=== PATIENT | female | born 1965 | race African-American/Black ===

== ENCOUNTER 2020-02-14 08:58 | Outpatient (REF) | payer OTHER, SELFPAY ==
[2020-02-14 11:36] LABS: Alanine Aminotransferase 20 U/L (0-31); Anion Gap 15 (12-20); Aspartate Amino Transferase 22 U/L (5-31); Blood Urea Nitrogen 21 mg/dL (9-16); Calcium 8.7 mg/dL (8.4-10.2); Carbon Dioxide 27 mmol/L (22-29); Chloride 103 mmol/L (96-108); Cholesterol 190 mg/dL; Estimated Glomerular Filt Rate > 60; Glucose Fasting 108 mg/dL (60-99); HDL Cholesterol 53 mg/dL; LDL Cholesterol Calculated 101 mg/dl; Potassium 4.5 mmol/l (3.3-5.1); Sodium 140 mmol/L (135-145); Triglycerides 184 mg/dL
[2020-02-14 11:58] LABS: Thyroid Stimulating Hormone 1.39 mIU/mL (0.32-4.0)
== END 2020-02-14 08:59 | disposition home or self-care (01) ==
LOC: HO.HMGCLDS 08:58
PROVIDERS: PCP Internal Medicine; Visit Provider Internal Medicine
DX: I10 Essential (primary) hypertension (principal)
CPT/HCPCS: 80048; 80061; 84443; 84450; 84460

== ENCOUNTER 2021-04-04 16:25 | Emergency (ER) | payer SELFPAY ==
--- NOTE | ~2021-04-04 | XR_ITS ---
EXAMINATION: XR FOOT, LEFT CLINICAL INFORMATION: Swelling and pain COMPARISON: None TECHNIQUE: AP, lateral, and oblique views of the left foot. FINDINGS: No acute fracture or dislocation. Joint spaces and articular surfaces are maintained. Tiny posterior and plantar calcaneal enthesophytes. Mild soft tissue swelling lateral to the ankle. XR/XR foot LT min 3V IMPRESSION: No acute fracture or dislocation
[2021-04-04 20:13] VITALS: BP 180/100; PULSE 68; RESP 16; TEMP 37; O2SAT 99; BMI 29.9
[2021-04-04 21:08] LABS: Basophils Percent Auto 0.5 % (0-2); Eosinophils Absolute Auto 0.2 X10*3/uL (0.0-0.4); Eosinophils Percent Auto 2.8 % (0-4); Hematocrit 38.8 % (37.0-47.0); Hemoglobin 12.2 g/dl (12.0-16.0); Imm Gran Abs Auto 0.01 X10*3/uL (0.00-0.03); Imm Gran Pct Auto 0.1 % (0.0-0.4); Lymphocytes Absolute Auto 3.3 X10*3/uL (1.2-4.9); MANUAL DIFF FLAG NO; Mean Corpuscular HGB Conc 31.4 g/dl (31.0-35.0); Mean Corpuscular Hemoglobin 25.7 pg (27.0-33.0); Mean Corpuscular Volume 81.9 fL (80.0-98.0); Mean Platelet Volume 9.7 fL (9.4-12.3); Monocytes Absolute Auto 0.6 X10*3/uL (0.1-1.2); Monocytes Percent Auto 6.6 % (2-11); Neutrophils Absolute Auto 4.2 x10*3/uL (2.0-8.3); Platelet Count 247 X10*3/uL (160-400); Red Blood Count 4.74 X10*6/uL (4.20-5.50); Red Cell Distribution Width 13.8 % (11.0-16.0); White Blood Count 8.4 X10*3/uL (4.8-10.8)
[2021-04-04 21:31] LABS: Anion Gap 10 (12-20); Blood Urea Nitrogen 19 mg/dL (9-16); Calcium 9.2 mg/dL (8.4-10.2); Carbon Dioxide 27 mmol/L (22-29); Chloride 109 mmol/L (96-108); Estimated Glomerular Filt Rate > 60; Glucose Random 106 mg/dL (60-115); Potassium 3.7 mmol/L (3.3-5.1); Sodium 142 mmol/L (135-145)
[2021-04-04 21:39] LABS: Troponin-I High Sensitivity < 3.5 ng/L (<3.5-17.0)
[2021-04-04 23:25] LABS: Erythrocyte Sedimentation Rate 8 MM/HR (0-20)
[2021-04-04 23:38] LABS: D Dimer High Sensitivity < 150 NG/ML
[2021-04-04 23:43] LABS: C Reactive Protein 0.89 mg/dL (< or = 0.50)
[2021-04-05 00:42] VITALS: BP 144/98; PULSE 75; RESP 18; O2SAT 98
--- NOTE | 2021-04-05 02:00 | ED_ITS ---
HPI - Extremity Injury (Lower) General Chief Complaint: Extremity Injury, Lower Stated Complaint: L foot swelling/No injury Time Seen by Provider: 04/04/21 22:09 Source: patient Mode of arrival: ambulatory Limitations: no limitations History of Present Illness HPI Narrative: 56-year-old female who woke up with left foot swelling this morning. Patient states that she has pain in her left Achilles tendon, she cannot flex her foot without pain. Patient has pain in the back of her heel. Patient has swelling in her left lateral ankle, no trauma. Patient can not bear weight due to pain. Patient has not had any new shoes, she is not on any medications, does not take amlodipine, no history of gout, no history of blood clots. Related Data Previous Rx's Medication Instructions Recorded olmesartan 20 mg tablet 20 mg PO DAILY #30 tab 02/25/20 hydrochlorothiazide 25 mg tablet 25 mg PO QAM #90 tab 06/25/20 prednisone 50 mg tablet 50 mg PO DAILY 5 Days #5 tab 04/05/21 Allergies Allergy/AdvReac Type Severity Reaction Status Date / Time lisinopril [LISINOPRIL] AdvReac Unknown COUGH, Verified 02/25/20 14:08 throat tightness, cough, cough Review of Systems Constitutional: Constitutional: Denies body ache(s), Denies chills, Denies fatigue, Denies fever(s), Denies headache(s), Denies malaise and Denies weakness Eyes: Eyes: Denies diplopia ENT: Denies vertigo, Denies dizziness, Denies otalgia, Denies headache(s), Denies mouth pain, Denies post nasal drip, Denies sinus pain, Denies sinus pres sure, Denies sore throat and Denies throat swelling Cardiovascular: Cardiovascular: Denies chest pain, Denies syncope, Denies leg edema, Denies lightheadedness, Denies Loss of Consciousness, Denies palpitations and Denies dyspnea Respiratory: Respiratory: Denies chest congestion, Denies cough and Denies dyspnea Gastrointestinal: Gastrointestinal: Denies abdominal pain, Denies hematochezia, Denies constipation, Denies diarrhea and Denies vomiting Musculoskeletal: Musculoskeletal: Reports arthralgias, Reports limited range of motion, Denies numbness and Denies tingling Neurologic: Denies confusion, Denies vertigo, Denies dizziness, Denies syncope, Denies headache(s), Denies numbness, Denies tingling and Denies weakness Psychiatric: Psychiatric: Denies anxiety, Denies confusion and Denies dep ression Endocrine: Endocrine: Denies fatigue and Denies palpitations Allergic/Immunologic: Allergic/Immunologic: Denies throat swelling PMFSH Past Medical History Medical History (Updated 04/05/21 @ 00:17 by RODRIGO Harrell) Carpal tunnel syndrome Essential hypertension Fibromyalgia Impaired fasting glucose Menopause Refused influenza vaccine Urinary, incontinence, stress female Vitiligo Surgical History History of carpal tunnel surgery History of tubal ligation Family History Family History Mother Coronary artery disease Essential hypertension Diabetes mellitus Social History Social History Alcohol intake: current Alcohol intake frequency: holidays/special occasions only Cigarettes Per Day: 5 Advance Directives: No Advance Directives Information Provided: No Physical Exam Vital Signs: Vital Signs: Last Vital Signs Temp 98.6 F 04/04/21 20:13 Pulse 75 04/05/21 00:42 Resp 18 04/05/21 00:42 BP 144/98 H 04/05/21 00:42 Pulse Ox 98 04/05/21 00:42 BMI result Body Mass Index 29.9 Const: General: No confusion Nutritional Appearance: well nourished Orientation/consciousness: No confusion Limitations: no limitations HENMT: Head: Yes normal to inspection, Yes normocephalic and Yes atraumatic Ears: hearing grossly normal bilaterally, external ears normal, TM's normal bilaterally and EAC's normal General nose exam: Normal external nose present Face and sinus: Yes normal facial exam and Yes sinuses nontender Mouth: Normal oral and palatal mucosa present Throat: Yes posterior oropharynx normal Eyes: Conjunctivae: conjunctivae normal Pupils: Equal, round and reactive pupils present EOM: EOMs intact bilaterally Neck: Neck: Yes full ROM, Yes no lymphadenopathy and Yes supple Resp: Effort & Inspection: normal respiratory effort and able to speak in complete sentences Auscultation: clear to auscultation bilaterally, no crackles, no rales, no rhonchi and no wheezes Cardio: Rate: regular rate Rhythm: regular rhythm Heart sounds: S1 normal heart sound present and S2 normal heart sound present GI: Inspection: Yes normal to inspection Palpation (GI): Soft to palpation, nontender, no guarding and not rigid Percussion: Yes normal to percussion Auscultation: normal bowel sounds Skin: Other: No redness or warmth. Swelling over lateral left ankle General skin exam: no rashes or lesions noted Neuro: General: No confusion Cranial nerves: Yes Equal, round and reactive pupils present Extrem: Left lower extremity: normal capillary refill and ankle Details: tenderness Location: of the lateral malleolus, swelling Details: laterally and normal ROM; Negative for no warmth, no ecchymosis, no crepitus and achilles tendon exam normal; No no edema Psych: Appearance: grossly normal Affect: normal affect Attitude: cooperative Thought process: Normal thought process present Course Course Course Narrative: 56-year-old female presents for atraumatic left foot pain that started this morning. Patient is tender over Achilles tendon, heel of foot, and has left lateral ankle swelling. No warmth or redness. Patient has the x- ray negative for any osseous injury, has normal labs, negative D-dimer, ESR is not elevated, CRP is only very mildly elevated. Prescribed prednisone, provided ankle stirrup splint, crutches, at patient call PCP to follow-up for further evaluation. Counseled patient she may need a referral to physical therapy. MDM - Extremity Injury (Lower) Lab Data Result diagrams: 04/04/21 21:04/04/21 21:01 Labs: Lab Results 04/04/21 04/04/21 04/04/21 Range/Units 21:01 21:01 21: WBC 8.4 (4.8-10.8) X10*3/uL RBC 4.74 (4.20-5.50) X10*6/uL Hgb 12.2 (12.0-16.0) g/dl Hct 38.8 (37.0-47.0) % MCV 81.9 (80.0-98.0) fL MCH 25.7 L (27.0-33.0) pg MCHC 31.4 (31.0-35.0) g/dl RDW 13.8 (11.0-16.0) % Plt Count 247 (160-400) X10*3/uL MPV 9.7 (9.4-12.3) fL Immature Gran % (Auto) 0.1 (0.0-0.4) % Neut % (Auto) 50.0 (45-73) % Lymph % (Auto) 40.0 (20-40) % [place] % (Auto) 6.6 (2-11) % Eos % (Auto) 2.8 (0-4) % Baso % (Auto) 0.5 (0-2) % Lymph # (Auto) 3.3 (1.2-4.9) X10*3/uL [place] # (Auto) 0.6 (0.1-1.2) X10*3/uL Eos # (Auto) 0.2 (0.0-0.4) X10*3/uL Baso # (Auto) 0.0 (0.0-0.2) X10*3/uL Abs Immat Gran (auto) 0.01 (0.00-0.03) X10*3/uL Absolute Neuts (auto) 4.2 (2.0-8.3) x10*3/uL Absolute Nucleated RBC 0.000 (0.0-0.012) X10*3/uL Nucleated RBC % (auto) 0.0 (0.0-0.2) /100WBC ESR (0-20) MM/HR D-Dimer High Sensitivty NG/ML Sodium 142 (135-145) mmol/L Potassium 3.7 (3.3-5.1) mmol/L Chloride 109 H (96-108) mmol/L Carbon Dioxide 27 (22-29) mmol/L Anion Gap 10 L (12-20) BUN 19 H (9-16) mg/dL Creatinine 0.72 (0.5-1.4) mg/dL Estim Creat Clear Calc 91.0 Estimated GFR > 60 Random Glucose 106 (60-115) mg/dL Calcium 9.2 (8.4-10.2) mg/dL Troponin I High Sens < 3.5 (<3.5-17.0) ng/L C-Reactive Protein (< or = 0.50) mg/dL 04/04/21 04/04/21 04/04/21 Range/Units 21:01 23:10 23:10 WBC (4.8-10.8) X10*3/uL RBC (4.20-5.50) X10*6/uL Hgb (12.0-16.0) g/dl Hct (37.0-47.0) % MCV (80.0-98.0) fL MCH (27.0-33.0) pg MCHC (31.0-35.0) g/dl RDW (11.0-16.0) % Plt Count (160-400) X10*3/uL MPV (9.4-12.3) fL Immature Gran % (Auto) (0.0-0.4) % Neut % (Auto) (45-73) % Lymph % (Auto) (20-40) % [place] % (Auto) (2-11) % Eos % (Auto) (0-4) % Baso % (Auto) (0-2) % Lymph # (Auto) (1.2-4.9) X10*3/uL [place] # (Auto) (0.1-1.2) X10*3/uL Eos # (Auto) (0.0-0.4) X10*3/uL Baso # (Auto) (0.0-0.2) X10*3/uL Abs Immat Gran (auto) (0.00-0.03) X10*3/uL Absolute Neuts (auto) (2.0-8.3) x10*3/uL Absolute Nucleated RBC (0.0-0.012) X10*3/uL Nucleated RBC % (auto) (0.0-0.2) /100WBC ESR 8 (0-20) MM/HR D-Dimer High Sensitivty < 150 NG/ML Sodium (135-145) mmol/L Potassium (3.3-5.1) mmol/L Chloride (96-108) mmol/L Carbon Dioxide (22-29) mmol/L Anion Gap (12-20) BUN (9-16) mg/dL Creatinine (0.5-1.4) mg/dL Estim Creat Clear Calc Estimated GFR Random Glucose (60-115) mg/dL Calcium (8.4-10.2) mg/dL Troponin I High Sens (<3.5-17.0) ng/L C-Reactive Protein 0.89 H (< or = 0.50) mg/dL Discharge Plan Discharge Clinical Impression: Localized swelling of left foot Patient Disposition: Home, Self-Care Instructions: Crutch Instructions (ED), R.I.C.E. Treatment (ED) Additional Instructions: Please rest, ice, and elevate your left foot. Please call your primary care provider on Monday. They may want to re-evaluate you and possibly sent due to physical therapy. Please take prednisone as prescribed. Prescriptions: New prednisone 50 mg tablet 50 mg PO DAILY 5 Days Qty: 5 RF: 0 No Action olmesartan 20 mg tablet 20 mg PO DAILY Qty: 30 RF: 8 hydrochlorothiazide 25 mg tablet 25 mg PO QAM Qty: 90 RF: 0 Stand Alone Forms: Work/School Release Interventions: ED Discharge Assessment Last Done: 04/05/21 00:43 Discharge Date/Time: 04/05/21 00:59
== END 2021-04-05 00:59 | disposition home or self-care (01) ==
PROVIDERS: Physician Assistant; Emergency Provider Emergency Medicine; PCP Internal Medicine
DX: R22.42 Localized swelling, mass and lump, left lower limb (principal); M79.672 Pain in left foot
CPT/HCPCS: 36415; 73630; 80048; 84484; 85025; 85379; 85652; 86140; 99283

== ENCOUNTER 2021-04-21 07:47 | Outpatient (REF) | payer OTHER, SELFPAY | END 2021-04-21 07:48 | disposition home or self-care (01) | LOC: HO.HMGCLDS 07:47 | PROVIDERS: Visit Provider Internal Medicine | DX: Z20.822 Contact with and (suspected) exposure to COVID-19 (principal) | CPT/HCPCS: C9803; U0003; U0005 ==

== ENCOUNTER 2021-05-16 12:12 | Emergency (ER) | payer OTHER, SELFPAY ==
[2021-05-16 12:15] VITALS: BP 170/95; PULSE 74; RESP 19; TEMP 36.6; O2SAT 99; BMI 30.2
--- NOTE | 2021-05-16 13:41 | ED_ITS ---
HPI - URI/Sore Throat General Chief Complaint: Upper Respiratory Symptoms Stated Complaint: shortness of breath, COVID+ Time Seen by Provider: 05/16/21 12:21 Source: patient and RN notes reviewed Mode of arrival: ambulatory Limitations: no limitations History of Present Illness HPI Narrative: pt with sorethroat, cough, body aches and low grade fever x 5 days. covid test 2 days ago that resulted + today. pt came to ED to be cautious because she has covid and wanted to be checked out. pt has some SOB with exertion, no n/v/d, eating and drinking well. pt with hx of HTN Relieving factors: rest Treatments prior to arrival: none Related Data Previous Rx's Medication Instructions Recorded olmesartan 20 mg tablet 20 mg PO DAILY #30 tab 02/25/20 hydrochlorothiazide 25 mg tablet 25 mg PO QAM #90 tab 06/25/20 prednisone 50 mg tablet 50 mg PO DAILY 5 Days #5 tab 04/05/21 Allergies Allergy/AdvReac Type Severity Reaction Status Date / Time lisinopril [LISINOPRIL] AdvReac Unknown COUGH, Verified 02/25/20 14:08 throat tightness, cough, cough Review of Systems Verdana 4l Review of Systems: Verdana 4d Verdana 4d Constitutional : No trauma, No Weight loss, No Fever, No Chills, ENT/Mouth : No Hearing loss, No Ear Pain, No Nasal Congestion, No Sinus Pain, No Hoarseness, + sore throat, No Rhinorrhea, No Swallowing Difficulty Cardiovascular : No Chest Pain, Respiratory : + Cough, mild SOB Gastrointestinal : No Nausea, No Vomiting, No Diarrhea, No abdominal Pain, Genitourinary : No Dysuria, No Urinary Frequency, No Hematuria, No Urinary or Bowel Incontinence/retention? Musculoskeletal : no Back pain, No neck pain, No joint stiffness, No joint swelling Skin : No Skin Lesions, No rash or signs of infection Neuro : No Weakness, No radiation, No Numbness, No Paresthesias, mild headache, Denies history of IV drug usage. Psych : No SI/HI/thoughts of self injury Yes all other systems are reviewed and are negative [facility] Past Medical History Attestation statement: The following information was validated with the patient. Medical History (Updated 05/16/21 @ 13:45 by RODRIGO Thurston) Carpal tunnel syndrome Essential hypertension Fibromyalgia Impaired fasting glucose Menopause Refused influenza vaccine Urinary, incontinence, stress female Vitiligo Surgical History History of carpal tunnel surgery History of tubal ligation Family History Family History Mother Coronary artery disease Essential hypertension Diabetes mellitus Social History Social History Alcohol intake: current Alcohol intake frequency: holidays/special occasions only Cigarettes Per Day: 5 Advance Directives: No Advance Directives Information Provided: Yes Patient : No Physical Exam Verdana 4l Vital Signs: Verdana 4d Verdana 4d Vital Signs: Verdana 4d Verdana 4Bd Last Vital Signs Verdana 4d Cmm Programmer New 4d Cmm Programmer New 4d Temp 98 F 05/16/21 12:15 Cmm Programmer New 4d Pulse 74 05/16/21 12:15 Cmm Programmer New 4d Resp 19 05/16/21 12:15 BP 170/95 H 05/16/21 12:15 Pulse Ox 99 05/16/21 12:15 BMI result Body Mass Index 30.2 vital signs have been reviewed as normal and appeared to be correct.? Blood pressure elevated.? Heart rate normal.? Respiration rate normal.? Temperature normal.? Oxygen saturation normal. Appearance: Alert. Oriented X3. No acute distress. ? Head: Normal external exam. Normocephalic. Atraumatic.? Eyes: PERRLA. EOMI. Conjunctiva and sclera normal. Eyelids normal. ? ENT: EAC normal. TMs Normal. Pharynx normal. Uvula midline. Moist mucous membranes. ? No trismus noted.? No drooling noted.? No muffled voice noted. Neck: Normal inspection. Neck supple. Normal ROM. No adenopathy. No meningeal signs. No neck mass noted. CVS: Normal heart rate and rhythm. Heart sound normal. No murmurs noted. Respiratory: No respiratory distress. Painless inspiration. Breath sounds normal. No wheezes/rales/rhonchi noted. Chest nontender. ? No accessory muscle usage noted or decreased air movement noted. Abdomen: Soft and nontender. Back: ?? Full range of motion noted. Skin: Skin warm and dry.? Normal skin color.? Normal skin turgor. No rashes/lesions/lacerations noted. Extremities: ? Extremities exhibit normal range of motion.? Extremities nontender. Normal gait Neuro: Oriented X 3.? No motor deficit noted. No sensory deficit noted. Discharge Plan Discharge Clinical Impression: Upper respiratory infection, COVID-19 Patient Disposition: Home, Self-Care Instructions: Upper Respiratory Infection (ED), COVID-19 (Coronavirus Disease 2019) (ED) Additional Instructions: Note given for work. Follow CDC and state guidelines for quarantining. Return if worse, increasing shortness of breath. okay to take tylenol or ibuprofen for control of fever and body aches. drink plenty of fluids. Prescriptions: No Action olmesartan 20 mg tablet 20 mg PO DAILY Qty: 30 8RF hydrochlorothiazide 25 mg tablet 25 mg PO QAM Qty: 90 0RF prednisone 50 mg tablet 50 mg PO DAILY 5 Days Qty: 5 0RF Referrals: [facility] [Primary Care Provider] - 2 days (as needed) Stand Alone Forms: Work/School Release Interventions: ED Discharge Assessment Last Done: 05/16/21 14:05 Discharge Date/Time: 05/16/21 14:06
--- NOTE | 2021-05-16 14:01 | PC.NURSE ---
Patient to ER after learning she is COVID +. Patient is alert and oriented with regular and even respirations. No difficulty breathing. SPO2 99%. Skin PWD. Awaiting discharge.
== END 2021-05-16 14:06 | disposition home or self-care (01) ==
PROVIDERS: Emergency Provider Emergency Medicine
DX: U07.1 COVID-19 (principal); J06.9 Acute upper respiratory infection, unspecified; R06.02 Shortness of breath; F17.210 Nicotine dependence, cigarettes, uncomplicated; Z71.6 Tobacco abuse counseling; Z79.899 Other long term (current) drug therapy
CPT/HCPCS: 99283

== ENCOUNTER 2021-08-04 11:53 | Outpatient (REF) | payer SELFPAY ==
[2021-08-04 14:07] LABS: Alanine Aminotransferase 20 U/L (0-31); Albumin Level 4.3 g/dL (3.5-5.0); Alkaline Phosphatase 114 U/L (39-117); Anion Gap 13 (12-20); Aspartate Amino Transferase 23 U/L (5-31); Bilirubin Total 0.3 mg/dL (0.0-1.0); Blood Urea Nitrogen 13 mg/dL (9-16); Calcium 9.4 mg/dL (8.4-10.2); Carbon Dioxide 27 mmol/L (22-29); Chloride 105 mmol/L (96-108); Cholesterol 185 mg/dL; Estimated Glomerular Filt Rate > 60; Glucose Fasting 89 mg/dL (60-99); HDL Cholesterol 48 mg/dL; LDL Cholesterol Calculated 115 mg/dl; Potassium 4.6 mmol/L (3.3-5.1); Sodium 140 mmol/L (135-145); Total Protein 7.4 g/dL (6.5-8.0); Triglycerides 112 mg/dL
== END 2021-08-04 11:54 | disposition home or self-care (01) ==
LOC: HO.HMGCLDS 11:53
PROVIDERS: PCP Internal Medicine; Visit Provider Internal Medicine
DX: R73.01 Impaired fasting glucose (principal); I10 Essential (primary) hypertension
CPT/HCPCS: 36415; 80053; 80061

== ENCOUNTER 2021-12-04 15:41 | Emergency (ER) | payer SELFPAY ==
--- NOTE | ~2021-12-04 | CT_ITS ---
EXAMINATION: CT HEAD WITHOUT CONTRAST CLINICAL INFORMATION: Headache. COMPARISON: MR brain 12/15/2015. TECHNIQUE: Contiguous axial imaging was performed from the skull base to vertex without intravenous administration of contrast. This CT examination was performed using dose optimization techniques as appropriate, variously including the following: *Automated exposure control *Adjustment of mA and/or kV according to patient size (this includes techniques or standardized protocols for targeted exams where dose is matched to indication/reason for exam; i.e. extremities or head) *Use of iterative reconstruction technique DLP: 677 mGy-cm FINDINGS: There is no evidence of acute intracranial hemorrhage or edematous territorial infarction. There is no abnormal attenuation within the brain parenchyma. King-white matter differentiation is preserved. The ventricles are normal in size and configuration. No evidence for obstructive hydrocephalus. No abnormal mass effect or midline shift. No extra-axial fluid collections. No acute soft tissue or osseous abnormalities. The mastoid air cells and paranasal sinuses are clear. CT/CT head/brain wo con IMPRESSION: No evidence of acute intracranial hemorrhage or edematous territorial infarction.
[2021-12-04 15:47] VITALS: BP 173/113; PULSE 98; RESP 18; TEMP 37; O2SAT 100
--- NOTE | 2021-12-04 15:51 | ECG_ITS ---
Test Reason : dizziness/headpressure Blood Pressure : / mmHG Vent. Rate : 081 BPM Atrial Rate : 081 BPM P-R Int : 154 ms QRS Dur : 072 ms QT Int : 378 ms P-R-T Axes : 040 039 051 degrees QTc Int : 439 ms Normal sinus rhythm Nonspecific ST abnormality Abnormal ECG When compared with ECG of 13-NOV-2017 18:14, No significant change was found Referred By: Generic ED Physician Electronically Signed By:ANDRES WILKINS
[2021-12-04 16:06] LABS: MANUAL DIFF FLAG NO
[2021-12-04 16:07] LABS: Basophils Absolute Auto 0.1 X10*3/uL (0.0-0.2); Basophils Percent Auto 0.6 % (0-2); Eosinophils Absolute Auto 0.2 X10*3/uL (0.0-0.4); Eosinophils Percent Auto 2.1 % (0-4); Hematocrit 38.1 % (37.0-47.0); Hemoglobin 12.5 g/dl (12.0-16.0); Imm Gran Abs Auto 0.01 X10*3/uL (0.00-0.03); Imm Gran Pct Auto 0.1 % (0.0-0.4); Lymphocytes Absolute Auto 2.6 X10*3/uL (1.2-4.9); Lymphocytes Percent Auto 33.6 % (20-40); Mean Corpuscular HGB Conc 32.8 g/dl (31.0-35.0); Mean Corpuscular Hemoglobin 26.2 pg (27.0-33.0); Mean Corpuscular Volume 79.9 fL (80.0-98.0); Mean Platelet Volume 9.7 fL (9.4-12.3); Monocytes Absolute Auto 0.5 X10*3/uL (0.1-1.2); Monocytes Percent Auto 6.4 % (2-11); Neutrophils Absolute Auto 4.4 x10*3/uL (2.0-8.3); Neutrophils Percent Auto 57.2 % (45-73); Platelet Count 252 X10*3/uL (160-400); Red Blood Count 4.77 X10*6/uL (4.20-5.50); Red Cell Distribution Width 13.5 % (11.0-16.0); White Blood Count 7.8 X10*3/uL (4.8-10.8)
[2021-12-04 16:23] LABS: Alanine Aminotransferase 16 U/L (0-31); Albumin Level 4.3 g/dL (3.5-5.0); Alkaline Phosphatase 106 U/L (39-117); Anion Gap 14 (12-20); Aspartate Amino Transferase 18 U/L (5-31); Bilirubin Total 0.3 mg/dL (0.0-1.0); Blood Urea Nitrogen 18 mg/dL (9-16); Calcium 9.7 mg/dL (8.4-10.2); Carbon Dioxide 25 mmol/L (22-29); Chloride 108 mmol/L (96-108); Creatinine Clr Calc Pharmacy 73.7; Estimated Glomerular Filt Rate > 60; Glucose Random 119 mg/dL (60-115); Potassium 3.6 mmol/L (3.3-5.1); Sodium 143 mmol/L (135-145); Total Protein 7.2 g/dL (6.5-8.0)
[2021-12-04 16:26] LABS: Troponin-I High Sensitivity < 3.5 ng/L (<3.5-17.0)
[2021-12-04 18:07] VITALS: BP 182/104; PULSE 70; RESP 18; TEMP 36.4; O2SAT 98
--- NOTE | 2021-12-04 19:39 | ED.EPISTAXIS ---
History of Present Illness General Chief Complaint: Epistaxis Stated Complaint: nose bleed Time Seen by Provider: 12/04/21 17:29 Source: patient Mode of arrival: ambulatory Limitations: no limitations History of Present Illness HPI Narrative: anxious hx of HTN not on aspirin or blood thinners normal day today was driving and developed brisk nose bleed R > L. No trauma no prior nose bleeds. Location: Yes right nares Onset/current episode: Yes minute(s) (just prior to arrival - in triage 4 hours prior to my exam of her ) Duration: Yes intermittent Pertinent past history: Yes hypertension Context: Yes other (denies states it started suddenly ) Associated symptoms: Yes headache Treatment prior to arrival: Yes nose pinching Related Data Previous Rx's Medication Instructions Recorded valsartan 160 mg tablet 160 mg PO DAILY #90 tabs 08/27/21 Allergies Allergy/AdvReac Type Severity Reaction Status Date / Time lisinopril [LISINOPRIL] AdvReac Unknown COUGH, Verified 08/03/21 10:59 throat tightness, cough, cough Review of Systems Review of Systems: Constitutional : No Fever, No Chills ENT/Mouth : No Ear Pain, No Nasal Congestion, positive nose bleed Eyes: No Eye Pain, No Swelling, No Redness Cardiovascular : No Chest Pain, No SOB Respiratory : No Cough, No Sputum Gastrointestinal : No Nausea, No Vomiting, No Diarrhea Genitourinary : No Dysuria, No Hematuria Musculoskeletal : No joint pain, No Myalgias Skin : No Skin Lesions, No rash Neuro : No Weakness, No Numbness, No headache Psych : pos Anxiety/Panic, No Depression All other systems reviewed and are negative [facility] Past Medical History Attestation statement: The following information was validated with the patient. Medical History Carpal tunnel syndrome Fibromyalgia History of bone density study Impaired fasting glucose Menopause Refused influenza vaccine Smoker unmotivated to quit Urinary, incontinence, stress female Vitiligo Surgical History History of carpal tunnel surgery History of tubal ligation Family History Family History Mother Coronary artery disease Essential hypertension Diabetes mellitus Son Mental health disorder Social History Social History Housing: House Alcohol intake: current Alcohol intake frequency: holidays/special occasions only Patient Tobacco Use Status: Current everyday Tobacco user Cigarettes Per Day: 4 e-Cigarette/Vaping Use: Never Used Advance Directives: No Advance Directives Information Provided: No service: No Current occupational status: employed Cognitive needs: No Hearing needs: No Vision needs: No Physical Exam Vital Signs: Vital Signs: Last Vital Signs Temp 97.9 F 12/04/21 20:35 Pulse 58 12/04/21 20:35 Resp 20 12/04/21 20:35 BP 184/101 H 12/04/21 20:35 Pulse Ox 98 12/04/21 20:35 O2 Del Method 12/04/21 20:35 BMI result Body Mass Index 30.0 Appearance: Alert. Oriented X3. anxious mild acute distress. Eyes: Pupils equal, round and reactive to light. ENT: Pharynx blood noted in back of throat, R nares brisk brb noted, L scant brb noted, Neck: Normal inspection. Neck supple. CVS: Normal heart rate and rhythm. Pulses normal. Respiratory: No respiratory distress. Breath sounds normal. Abdomen: Soft and nontender. Skin: Skin warm and dry. Normal skin color. Extremities: No lower extremity edema. dried blood on chuy shortsabrina Neuro: Oriented X 3. No motor deficit. No sensory deficit. Course Course Course Narrative: CT head ordered given headache prior to epistaxis CT head normal no further symptoms, bleeding controlled, BP still slightly elevated - asymptomatic stable for DC MDM - Epistaxis MDM Narrative Medical decision making narrative: 56 yo female with hx of HTN not on blood thinners or ASA c/o bilateral nose bleed R>L intermittent x 4 hours. She is NV intact. Bleeding seems to be predominant to the R nares. Labs in triage stable. At this time will attempt local measures and cautery if that does not work will attempt rhino rocket. Dispo per results and bleeding control. Lab Data Result diagrams: 12/04/21 16:00 12/04/21 16:00 Labs: Lab Results 12/04/21 12/04/21 12/04/21 Range/Units 16:00 16:00 16:00 WBC 7.8 (4.8-10.8) X10*3/uL RBC 4.77 (4.20-5.50) X10*6/uL Hgb 12.5 (12.0-16.0) g/dl Hct 38.1 (37.0-47.0) % MCV 79.9 L (80.0-98.0) fL MCH 26.2 L (27.0-33.0) pg MCHC 32.8 (31.0-35.0) g/dl RDW 13.5 (11.0-16.0) % Plt Count 252 (160-400) X10*3/uL MPV 9.7 (9.4-12.3) fL Immature Gran % (Auto) 0.1 (0.0-0.4) % Neut % (Auto) 57.2 (45-73) % Lymph % (Auto) 33.6 (20-40) % [place] % (Auto) 6.4 (2-11) % Eos % (Auto) 2.1 (0-4) % Baso % (Auto) 0.6 (0-2) % Lymph # (Auto) 2.6 (1.2-4.9) X10*3/uL [place] # (Auto) 0.5 (0.1-1.2) X10*3/uL Eos # (Auto) 0.2 (0.0-0.4) X10*3/uL Baso # (Auto) 0.1 (0.0-0.2) X10*3/uL Abs Immat Gran (auto) 0.01 (0.00-0.03) X10*3/uL Absolute Neuts (auto) 4.4 (2.0-8.3) x10*3/uL Absolute Nucleated RBC 0.000 (0.0-0.012) X10*3/uL Nucleated RBC % (auto) 0.0 (0.0-0.2) /100WBC Sodium 143 (135-145) mmol/L Potassium 3.6 D (3.3-5.1) mmol/L Chloride 108 (96-108) mmol/L Carbon Dioxide 25 (22-29) mmol/L Anion Gap 14 (12-20) BUN 18 H (9-16) mg/dL Creatinine 0.89 (0.5-1.4) mg/dL Estim Creat Clear Calc 73.7 Estimated GFR > 60 Random Glucose 119 H (60-115) mg/dL Calcium 9.7 (8.4-10.2) mg/dL Total Bilirubin 0.3 (0.0-1.0) mg/dL AST 18 (5-31) U/L ALT 16 (0-31) U/L Alkaline Phosphatase 106 (39-117) U/L Troponin I High Sens < 3.5 (<3.5-17.0) ng/L Total Protein 7.2 (6.5-8.0) g/dL Albumin 4.3 (3.5-5.0) g/dL ECG Data Attestation: I personally reviewed and interpreted this ECG as follows: ECG interpretation date: 12/04/21 ECG interpretation time: 19:41 Interpretation: Rate: 81 Rhythm: NSR [place]: normal Normal P waves. Normal NATHAN. Normal QRS complex. ST T wave : normal no SAMREEN qTC: normal prior studies: no acute ischemia The study has been interpreted contemporaneously by me. . Procedures Epistaxis Control Time Out Performed: Yes Nostril: Yes left and Yes right Nose prepped with: Yes oxymetazoline and Yes other (tranexamic acid) Direct inspection: Yes anterior source identified Direct inspection method: Yes nasal rhinoscope Clots removed by: Yes manually Epistaxis treatment: Yes TXA soaked gauze and Yes silver nitrate cautery Results of treatment: Yes bleeding controlled and Yes treatment well tolerated Complications: Yes none Critical Care Time Critical Care Time Critical Care Time: Yes Total Critical Care Time: 35 Attestation: acute management of epistaxis at bedside with repeat assessments I attest to this time spent taking care of the patient Discharge Plan Discharge Clinical Impression: Epistaxis Patient Disposition: Home, Self-Care Instructions: Nosebleed (ED) Additional Instructions: return to ED for any worsening symptoms or concerns no nose blowing for 5 days no picking nose take blood pressure meds no aspirin if nose bleeds pinch it lean forward and seek help use saline spray for the next 5 days to keep area moistened Prescriptions: No Action valsartan 160 mg tablet 160 mg PO DAILY Qty: 90 3RF
--- NOTE | 2021-12-04 19:43 | PC.NURSE ---
At approximately 1930- i was notified by registration that the patient's nose started to bleed again. Per pt: I'm going to bleed and spit on the floor. This is bullshit. This a fucking emergency room and this is an emergency. Why the fuck are people called in ahead of me. I'm going to file a complaint against the hospital. Pt brought back to triage for reassessment. Charge nurse notified of patient and verbally abusive behavior. Pt brought back to [address] [place] [id number] for further assessment.
[2021-12-04] MEDS: Ondansetron ODT 4 MG TAB.RAPDIS TRANSLINGU (20:23)
[2021-12-04] MEDS: Silver Nitrate Applicator STICK..EA. 1 APPL TOPICAL (20:24)
[2021-12-04] MEDS: Oxymetazoline HCl 0.05 % Nasal 15 ML SPRAY 2 SPRAY NOSTRIL-B (20:24)
[2021-12-04] MEDS: Tranexamic Acid 1,000 MG/10 ML VIAL 500 MG INTRANASAL (20:24)
[2021-12-04 20:35] VITALS: BP 184/101; PULSE 58; RESP 20; TEMP 36.6; O2SAT 98
[2021-12-04] MEDS: LORazepam 1 MG TABLET PO (21:17)
[2021-12-04 22:00] VITALS: BP 176/93; PULSE 68; O2SAT 97
--- NOTE | 2021-12-04 22:36 | PC.NURSE ---
Reviewed discharge instructions with pt. pt verbalized understanding. Notified RN Katerin
== END 2021-12-04 22:39 | disposition home or self-care (01) ==
PROVIDERS: Emergency Provider Emergency Medicine; PCP Internal Medicine
DX: R04.0 Epistaxis (principal); R51.9 Headache, unspecified; I10 Essential (primary) hypertension; F17.210 Nicotine dependence, cigarettes, uncomplicated; F41.9 Anxiety disorder, unspecified
CPT/HCPCS: 30901; 36415; 70450; 80053; 84484; 85025; 93005; 99284

== ENCOUNTER 2022-03-25 12:24 | Day surgery (SDC) | payer OTHER, SELFPAY ==
[2022-03-21 14:47] VITALS: BMI 29.9
--- NOTE | 2022-03-24 13:57 | HO.ANESPROP2 ---
Documented by User: Lynette Che NP 03/24/22 13:58 HPI - Anesthesia Eval Consult details Narrative: 57yo F for Colonoscopy PMFSH Active Problems Active Problems: All Active Problems (Updated 03/02/22 @ 12:43 by RISHI Bear) Tubular adenoma of colon (Acute) Pre-op examination (Acute) Uncontrolled hypertension (Acute) Smoker unmotivated to quit (Acute) COVID-19 (Acute) Impaired fasting glucose (Acute) Refused influenza vaccine (Acute) Menopause (Acute) Vitiligo (Acute) Urinary, incontinence, stress female (Acute) Fibromyalgia (Acute) Carpal tunnel syndrome (Acute) Past Medical History Medical History Carpal tunnel syndrome Fibromyalgia History of bone density study Impaired fasting glucose Menopause Refused influenza vaccine Smoker unmotivated to quit Uncontrolled hypertension Urinary, incontinence, stress female Vitiligo Family History Family History Mother Coronary artery disease Essential hypertension Diabetes mellitus Son Mental health disorder Surgical History Surgical History H/O colonoscopy History of carpal tunnel surgery History of tubal ligation Social History Social History Housing: House Alcohol intake: current Alcohol intake frequency: holidays/special occasions only Patient Tobacco Use Status: Current everyday Tobacco user Cigarettes Per Day: 4 e-Cigarette/Vaping Use: Never Used Advance Directives: No Advance Directives Information Provided: Yes service: No Current occupational status: employed Cognitive needs: No Hearing needs: No Vision needs: No Meds Allergies Allergy/AdvReac Type Severity Reaction Status Date / Time lisinopril [LISINOPRIL] AdvReac Unknown COUGH, Verified 03/01/22 10:50 throat tightness, cough, cough Exam Exam Date and Time: March 24, 2022 1357 Height,Weight and Vital Signs: Height 5 ft 5 in Weight 81.647 kg Pertinent Lab Results Pertinent Lab Results: Laboratory Tests 12/04/21 12/04/21 16:00 16:00 WBC 7.8 Hgb 12.5 Hct 38.1 Plt Count 252 Sodium 143 Potassium 3.6 D Chloride 108 Carbon Dioxide 25 BUN 18 H Creatinine 0.89 Narrative Narrative: EKG 11/2021 Vent. Rate : 081 BPM ? ? Atrial Rate : 081 BPM ?? P-R Int : 154 ms? QRS Dur : 072 ms ? ? QT Int : 378 ms ? ? ? P-R-T Axes : 040 039 051 degrees ?? QTc Int : 439 ms ? Normal sinus rhythm Nonspecific ST abnormality Abnormal ECG When compared with ECG of 13-NOV-2017 18:14, No significant change was found Assessment and Plan Assessment Anesthesia Assessment: Chart Reviewed Documented by User: Kelly Malone MD 03/25/22 13:43 PMFSH Past Medical History Medical History Carpal tunnel syndrome Fibromyalgia History of bone density study Impaired fasting glucose Menopause Refused influenza vaccine Smoker unmotivated to quit Uncontrolled hypertension Urinary, incontinence, stress female Vitiligo Family History Family History Mother Coronary artery disease Essential hypertension Diabetes mellitus Son Mental health disorder Surgical History Surgical History H/O colonoscopy History of carpal tunnel surgery History of tubal ligation History of Problems with Anesthesia: No Social History Social History Housing: House Alcohol intake: current Alcohol intake frequency: holidays/special occasions only Patient Tobacco Use Status: Current everyday Tobacco user Cigarettes Per Day: 4 e-Cigarette/Vaping Use: Never Used Advance Directives: No Advance Directives Information Provided: Yes service: No Current occupational status: employed Cognitive needs: No Hearing needs: No Vision needs: No Meds Allergies Allergy/AdvReac Type Severity Reaction Status Date / Time lisinopril [LISINOPRIL] AdvReac Unknown COUGH, Verified 03/01/22 10:50 throat tightness, cough, cough Exam Airway Mallampati Class: II TM Dist: >3cm Neck ROM: Full Partial: Upper and Lower Loose/Missing/Broken Teeth: Yes, Upper and Lower Heart: CTA Lungs: RRR Assessment and Plan Assessment Anesthesia Assessment: Anesthesia Plan Discussed Final Anesthetic Review History of Problems with Anesthesia: No NPO: Yes ASA Class: II Final Preanesthetic Review: Meds/Allgs Chart Reviewed, Consent Obtained/Reviewed and Anes Risks/Benef Reviewed Patient Risk: Low Procedure Risk: Low Anesthetic Plan Anesthetic Plan: MAC: Disposition: Standard PACU
[2022-03-25 12:37] VITALS: BMI 31.8
[2022-03-25 12:45] VITALS: BP 129/86; PULSE 64; RESP 16; TEMP 36.5; O2SAT 97
[2022-03-25] MEDS: Lactated Ringers 1,000 ML 100 ML IVCONT (13:08)
--- NOTE | 2022-03-25 13:42 | MHC.SHP ---
Pre-Procedural Eval Section A Date of Service: 03/25/22 The patient is an INPATIENT: No Changes since office visit: Yes Patient answered all questions; No Cold of Flu in the past 2 weeks, No New Medical Problems and No Changes in Medication The History & Physical has been completed within 30 days and I have reviewed it.: Yes Section B Chief Complaint: Personal history of colonic polyps Allergies: Allergies Allergy/AdvReac Type Severity Reaction Status Date / Time lisinopril [LISINOPRIL] AdvReac Unknown COUGH, Verified 03/01/22 10:50 throat tightness, cough, cough Plan I have reviewed the history and physical and performed a pertinent physical examination on my patient. No changes have occurred unless specified.
--- NOTE | 2022-03-25 13:48 | P.BOP_ITS ---
Brief Operative Note Date of Service: 03/25/22 Pre-op diagnosis: Colon cancer screening, history of colon polyps Post-op diagnosis: other (Colon polyps, diverticulosis, hemorrhoids) Procedure: COLONOSCOPY TO CECUM WITH BIOPSIES AND SNARE POLYPECTOMY Surgeon: Betsey Zambrano MD Anesthesia: MAC Was an Warrant Clerk used for this Procedure?: Yes Warrant Clerk: Rita Mobley Estimated blood loss (mL): 0 Pathology: other ( A. ascending colon polyps (2) B. sigmoid polyp C. rectal polyps) Condition: stable Disposition: PACU
--- NOTE | 2022-03-25 13:48 | P.OP_ITS ---
Operative Note Operative Note Date of Service: 03/25/22 Narrative: Pre-op diagnosis: Colon cancer screening, history of colon polyps Post-op diagnosis:?other (Colon polyps, diverticulosis, hemorrhoids) Surgeon: Betsey Zambrano MD Anesthesia:?MAC COLONOSCOPY TILL CECUM WITH BIOPSIES AND SNARE POLYPECTOMY Consent: Indications for the procedure and potential complications of bleeding, perforation, reaction to medications and missed diagnosis were discussed with the patient and informed consent was obtained. Instrument: Olympus PCF H 190 L variable stiffness pediatric colonoscope Monitoring: Vital signs and clinical assessment, intermittent blood pressure monitoring, continuous EKG monitoring, Pulse oximetry and Carbon Dioxide monitoring were done throughout the procedure. Colon withdrawl time was 17 minutes. Procedure: The patient was placed in the left lateral decubitis position and pre-procedure medications were administered. After a digital rectal examination of the ano-rectum, the video colonoscope was inserted into the rectum and advanced through the colon to the cecum. The colonoscope was slowly withdrawn in a retrograde panoramic fashion and the colon mucosa was carefully examined including a retroflexed view of the rectum. Findings and interventions are described below. Procedure Difficulty: Without difficulty Findings: Terminal Ileum: Not evaluated Cecum: Normal Ascending Colon: Two 8 to 12 mm sessile polyps removed with a cold snare. Transverse Colon: Normal Descending Colon: Moderate diverticulosis Sigmoid Colon: A few 5 to 8 mm diminutive appearing polyps - one removed with a cold bx. Moderate diverticulosis Rectum: Past polypectomy site visualized at 10 cms from the anal verge wiithout recurrent/residual polyp. Multiple 5 to 10 mm diminutive appearing polyps - 3 were biopsied. Ano-rectum: Moderate internal hemorrhoids Colon preparation: Excellent Impression and Post Procedure Diagnosis: Colonoscopy Findings: Three polyps removed and three diminutive appearing polyps were biopsied in the rectum. Past polypectomy site visualized at 10 cms from the anal verge wiithout recurrent/residual polyp. Moderate diverticulosis seen in the left colon Moderate hemorrhoids on retroflexed exam. Plan: Await pathology results Patient has an appointment on 04/07/22 in the [facility] with Sally Florez NP . Repeat Colonoscopy interval based on path results - in 3-5 years if polyps are adenomatous and 10 years if polyps are hyperplastic. Above findings were reviewed with the patient and colon polyps and diverticulosis handouts were given in the discharge area ADDENDUM: BIOPSIES SHOWED: A.? Colon, ascending, polypectomies (2):? Tubular adenomata; negative for high- grade dysplasia or carcinoma. B.? Colon, sigmoid, polypectomy:? Clinically polypoid colonic mucosa within normal limits. C.? Rectum, polypectomies:? Hyperplastic mucosal polyps.
[2022-03-25 14:33] VITALS: BP 94/51; PULSE 67; RESP 16; TEMP 36.9; O2SAT 98
[2022-03-25 14:48] VITALS: BP 129/66; PULSE 70; RESP 16; TEMP 36.9; O2SAT 99
== END 2022-03-25 15:16 | disposition home or self-care (01) ==
PROVIDERS: PCP Internal Medicine; Visit Provider Internal Medicine Gastroenterology
PROC: 0DJD8ZZ Inspection of Lower Intestinal Tract, Via Natural or Artificial Opening Endoscopic (ICD-10-PCS; CPT 45378; principal; 2022-03-25 13:40)
DX: Z12.11 Encounter for screening for malignant neoplasm of colon (principal); D12.2 Benign neoplasm of ascending colon; K63.5 Polyp of colon; K62.1 Rectal polyp; K57.30 Diverticulosis of large intestine without perforation or abscess without bleeding; K64.8 Other hemorrhoids; Z86.010 Personal history of colon polyps; I10 Essential (primary) hypertension; Z88.8 Allergy status to other drugs, medicaments and biological substances
CPT/HCPCS: 45385; 45380; 88305

== ENCOUNTER → 2022-04-07 13:25 | Outpatient (BNVA) | payer OTHER, SELFPAY | PROVIDERS: PCP Internal Medicine; Visit Provider Nurse Practitioner | DX: D12.6 Benign neoplasm of colon, unspecified (principal) ==

== ENCOUNTER 2022-08-10 12:17 | Outpatient (REF) | payer OTHER, SELFPAY ==
--- NOTE | ~2022-08-10 | XR_ITS ---
EXAMINATION: XR HIP, RIGHT CLINICAL INFORMATION: Right hip pain. COMPARISON: None available. TECHNIQUE: 2 views of the right hip. FINDINGS: Minimal right hip degenerative joint changes are seen superiorly. There is no acute fracture or dislocation. The right hemipelvis is intact. The soft tissues are unremarkable. XR/XR hip RT w PEL1V IMPRESSION: Minimal right hip degenerative joint changes suggesting osteoarthritis. No acute fracture.
== END 2022-08-10 12:18 | disposition home or self-care (01) ==
LOC: HO.HMGCX 12:17
PROVIDERS: PCP Internal Medicine; Visit Provider Internal Medicine
DX: M25.551 Pain in right hip (principal); G89.29 Other chronic pain
CPT/HCPCS: 73502

== ENCOUNTER 2022-09-02 09:21 | Outpatient (REF) | payer OTHER, SELFPAY ==
[2022-09-02 12:30] LABS: Alanine Aminotransferase 27 U/L (0-31); Aspartate Amino Transferase 29 U/L (5-31); Cholesterol 197 mg/dL; HDL Cholesterol 48 mg/dL; LDL Cholesterol Calculated 123 mg/dl; Triglycerides 130 mg/dL
[2022-09-02 12:33] LABS: Vitamin D 25-OH Total 17.8 ng/mL (>30)
== END 2022-09-02 09:22 | disposition home or self-care (01) ==
LOC: HO.HMGCLDS 09:21
PROVIDERS: PCP Internal Medicine; Visit Provider Internal Medicine
DX: Z00.01 Encounter for general adult medical examination with abnormal findings (principal); I10 Essential (primary) hypertension; R73.01 Impaired fasting glucose; Z78.0 Asymptomatic menopausal state; Z87.891 Personal history of nicotine dependence
CPT/HCPCS: 36415; 80061; 82306; 84450; 84460

== ENCOUNTER → 2024-02-07 11:02 | Outpatient (BNVA) | payer OTHER, SELFPAY | PROVIDERS: PCP Internal Medicine; Visit Provider Internal Medicine | DX: S39.012A Strain of muscle, fascia and tendon of lower back, initial encounter (principal); S63.501A Unspecified sprain of right wrist, initial encounter; S63.502A Unspecified sprain of left wrist, initial encounter; S83.92XA Sprain of unspecified site of left knee, initial encounter; W10.9XXA Fall (on) (from) unspecified stairs and steps, initial encounter | CPT/HCPCS: 72220; 73110; 73564; 73610; 99203 ==

== ENCOUNTER → 2024-02-21 09:44 | Outpatient (BNVA) | payer OTHER, SELFPAY | PROVIDERS: PCP Internal Medicine; Visit Provider Physician Assistant Medical | DX: S39.012D Strain of muscle, fascia and tendon of lower back, subsequent encounter (principal); S83.92XD Sprain of unspecified site of left knee, subsequent encounter; S63.502D Unspecified sprain of left wrist, subsequent encounter; S63.501D Unspecified sprain of right wrist, subsequent encounter; S30.0XXD Contusion of lower back and pelvis, subsequent encounter; S93.402D Sprain of unspecified ligament of left ankle, subsequent encounter; W10.9XXD Fall (on) (from) unspecified stairs and steps, subsequent encounter | CPT/HCPCS: 99213 ==

== ENCOUNTER 2024-03-18 12:43 | Outpatient (RCR) | payer OTHER, SELFPAY ==
[2024-03-18 13:08] VITALS: BP 179/83; PULSE 79
--- NOTE | 2024-03-18 13:54 | MHC.PT.EP ---
[facility] [place] Office [place] Office [place] Office [address] [phone] F: [phone] F: [phone] F: [phone] F: [phone] Physical Therapy Plan of Care Date of Evaluation: 03/18/24 Date of Surgery: NA Diagnosis: Lumbar strain, coccyx contusion, L knee sprain Assessment: Kalli is a 58 year old female who is referred to PT for lumbar strain, coccyx contusion, L knee sprain . She reports of injuring herself following a fall down the stairs about 5 weeks back. She injured her R knee, low back and L ankle. On PT examination she presents with TTP over R SI, R glute and R border of sacrum, 5/10 pain in coccyx with sitting, and knees with stairs, decreased lumbar ROM, decreased core and B LE strength and mildly altered posture. She lives with her son and is independent with ADLs but has pain with them. 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 She would benefit from skilled PT to address the aforementioned impairments and improve tolerance to functional activities. Frequency and Duration: The patient will be seen 2/week for 5 weeks Short Term Goals: 1. Pt will present with 50% decrease in low back purvis while sitting in 2 weeks. 2. Pt will be able to move her trunk through all planes of motion without pain which will enable her to dress her lower body without pain in 3 weeks. Director Of Learning Goals: 1. Pt will demonstrate an increase in core and B LE strength by 1 grade which will enable her to standing, walk and negotiate stairs without pain in 5 weeks. 2. Pt will be independent with al HEP and return to PLOF in 5 weeks. Treatment Plan: Modalities to reduce pain, spasms and effusion. Manual therapy to restore motion and function. Therapeutic exercise to improve strength and flexibility. Neuromuscular re-education for posture and balance. Therapeutic activities to return to functional activities of daily living. Electronically signed by: Evelia Lynn PT DPT Please sign and return to therapist. Thank you for your referral.
--- NOTE | 2024-04-11 11:22 | MHC.PT.DC ---
[facility] [place] Office [place] Office [place] Office [address] Handy [address] [phone] F: [phone] F: [phone] F: [phone] F: [phone] Physical Therapy Discharge Report Diagnosis: Lumbar strain, coccyx contusion, L knee sprain Date of Surgery: NA Date of Evaluation: 03/18/24 Date of Discharge: 04/11/24 Treatments to Date: 1 Cancellations to Date: 4 No Shows to Date: 0 Discharge Status: Visit Non-compliance Discharge Summary: Kalli pettit showed for 4 visits after her evaluation. She is therefore being d/c from PT for non compliance. Electronically signed by: Evelia Lynn PT DPT Please sign and return to therapist. Thank you for your referral.
== END 2024-04-11 11:22 | disposition home or self-care (01) ==
LOC: HO.PT 12:43
PROVIDERS: PCP Internal Medicine; Visit Provider Physician Assistant Medical
DX: S39.012D Strain of muscle, fascia and tendon of lower back, subsequent encounter (principal); S30.0XXD Contusion of lower back and pelvis, subsequent encounter; S83.92XD Sprain of unspecified site of left knee, subsequent encounter
CPT/HCPCS: 97112; 97161

== ENCOUNTER → 2024-04-23 13:28 | Outpatient (BNVA) | payer OTHER, SELFPAY | PROVIDERS: PCP Internal Medicine; Visit Provider Physician Assistant Medical | DX: S83.92XD Sprain of unspecified site of left knee, subsequent encounter (principal); W10.9XXD Fall (on) (from) unspecified stairs and steps, subsequent encounter | CPT/HCPCS: 99213 ==

== ENCOUNTER 2024-05-11 10:18 | Outpatient (REF) | payer OTHER, SELFPAY ==
--- NOTE | ~2024-05-11 | MR_ITS ---
EXAMINATION: MRI LEFT KNEE WITHOUT CONTRAST HISTORY: INTERMITTENT EDEMA, INSTABILITY, PAIN COMPARISON: Correlation is made with plain films of the left knee dated 02/07/2024. TECHNIQUE: Coronal T1 and fat-suppressed proton density, sagittal proton density and fat-suppressed proton density, and axial fat suppressed T2 weighted MR images of the left knee were obtained. FINDINGS: There is a 10 mm multiseptated cystic structure in the posterior aspect of the medial tibial plateau which has a benign appearance. There is a subchondral T2 hyperintense focus in the lateral femoral condyle which may represent an old osteochondral injury. The overlying cartilage appears intact. There is no significant joint effusion. There is no Longoria's cyst. The anterior and posterior cruciate ligaments and medial and lateral collateral ligaments are intact. There is mild degenerative signal in the posterior horn of the medial meniscus without evidence of a tear. The anterior horn of the medial meniscus and the lateral meniscus are intact. The patellar and quadriceps tendons and patellar retinacula are unremarkable in appearance. There is moderate osteoarthritis of the patellofemoral compartment with cartilage loss and subchondral marrow changes, particularly involving the lateral facet. MR/MR knee LT wo con IMPRESSION: 1. Moderate osteoarthritis of the patellofemoral compartment. 2. Possible old osteochondral injury involving the lateral femoral condyle. Electronically signed by: Rashad Nicolas MD 05/13/2024 08:50 AM [facility]
== END 2024-05-11 10:19 | disposition home or self-care (01) ==
LOC: HO.MRI 10:18
PROVIDERS: PCP Internal Medicine; Visit Provider Internal Medicine
DX: R60.0 Localized edema (principal); M25.562 Pain in left knee
CPT/HCPCS: 73721

== ENCOUNTER → 2024-05-11 10:30 | Outpatient (BNV) | payer OTHER, SELFPAY | PROVIDERS: PCP Internal Medicine; Visit Provider Radiology Diagnostic Radiology | DX: M17.12 Unilateral primary osteoarthritis, left knee (principal) | CPT/HCPCS: 73721 ==

== ENCOUNTER 2024-06-11 11:34 | Outpatient (AMB) | payer OTHER, SELFPAY ==
--- NOTE | 2024-06-11 11:58 | A.OFFPC_ITS ---
Vital Signs 06/11/24 11:59 Height 5 ft 5 in Weight 194 lb BMI 32.3 BP 148/92 H Blood Pressure Location Lt brachial Position Sitting Respiration 16 Pulse 75 Pulse Source Pulse Oximeter Temp 98.0 F Temp Source Oral Pulse Oximetry (%) 95 Oxygen Delivery Method Room Air Intake Visit Reasons: rectal concerns Intake Note: Pt is here today c/o abdominal pain and stool change in color light brown: at times stress incontinence stool Allergies lisinopril [LISINOPRIL] Adverse Reaction (Unknown, Verified 06/11/24 12:30) COUGH, throat tightness, cough, cough Medication List - Last Reconciled 06/11/24 by Tisha Tomas MD No Known Home Meds Tobacco use date assessed: 06/11/24 Dental Screening Dental Screen Date: 06/11/24 Did you have a dental visit in the last 12 months?: Yes Did you have a dental problem in the last 6 months where you did not have access to dental care?: Yes Was dental information given to patient?: Patient has dentist HPI rectal concerns HPI Details 59-year-old lady here today complaining of noticing bright red blood in her stool after defecation. Denies any rectal pain, gets occasional abdominal bloating and cramping, but not accompanied by any nausea or vomiting, unrelated to food intake. Last colonoscopy done in [address] Zambrano showed presence of a hyperplastic polyp and adenomatous polyp both of which were removed . Blood pressure elevated on today's v isit, has been out of her blood pressure medicine now for almost a year. Denies any chest pain, no headaches or lightheadedness. [facility] Medical History (Updated 06/11/24 @ 12:40 by Tisha Tomas MD) Internal hemorrhoid, bleeding Bright red blood per rectum Adenomatous polyp of colon Chronic right hip pain Essential hypertension Former smoker, stopped smoking in distant past Uncontrolled hypertension Smoker unmotivated to quit History of bone density study Impaired fasting glucose Refused influenza vaccine Menopause Vitiligo Urinary, incontinence, stress female Fibromyalgia Carpal tunnel syndrome Surgical History H/O colonoscopy History of carpal tunnel surgery History of tubal ligation Family History Mother Coronary artery disease Essential hypertension Diabetes mellitus Son Mental health disorder Social History Housing: House Alcohol intake: current Alcohol intake frequency: holidays/special occasions only Patient Tobacco Use Status: Former Tobacco user Tobacco use type: Cigarette Cigarettes Per Day: 2 e-Cigarette/Vaping Use: Never Used service: No Current occupational status: employed Cognitive needs: No Hearing needs: No Vision needs: Yes Questionnaire PHQ-9 Over the last 2 weeks, how often have you been bothered by any of the following problems? 1. Little interest or pleasure in doing things: not at all 2. Feeling down, depressed, or hopeless: not at all 3. Trouble falling or staying asleep, or sleeping too much: not at all 4. Feeling tired or having little energy: not at all 5. Poor appetite or overeating: not at all 6. Feeling bad about yourself - or that you are a failure or have let yourself or your family down: not at all 7. Trouble concentrating on things, such as reading the newspaper or watching television: not at all 8. Moving or speaking so slowly that other people could have noticed. Or the opposite - being so fidgety or restless that you have been moving around a lot more than usual: not at all 9. Thoughts that you would be better off or of hurting yourself in some way: not at all Total score: 0 Depression Screening Interpretation: Negative Depression Screening Done: Yes 40231 - PHQ-9 Billing: Yes Source: Developed by Drs. Rashad Muñoz, Jess Corbett, Miles Nevarez and colleagues, with an educational radha from [employer]. Thrive Questionnaire Date Thrive assessed: 06/08/24 I am a: Patient What is your living situation today?: I have a steady place to live Within the past 12 months, did the food you bought not last and you didn't have the money to get more?: Sometimes True Within the past 12 months, did you worry whether your food would run out before you got money to buy more?: Sometimes True Do you have trouble paying for medicines?: Yes Do you have trouble getting transportation to medical appointments?: No Do you have trouble paying your heating and electricity bill?: Yes Do you have trouble taking care of your child, family member or friend?: No Do you have trouble with day-to-day activities such as bathing, preparing meals, shopping, managing finances, etc.?: No Are you currently unemployed and looking for a job?: No Are you interested in more education?: Yes Please select the resources that you would like help with: Food and Education THRIVE Score: 3 AUDIT C Alcohol Use Questionnaire (AUDIT-C) 1. How often do you have a drink containing alcohol?: Never 3. How often do you have six or more drinks on one occasion?: Never Total Score: 0 ELLIOT-7 AMB Questionnaire ELLIOT-7 Date ELLIOT - 7 assessed: 06/11/24 Feeling nervous, anxious, or on edge: 0 = Not at all Not being able to stop or control worryin = Not at all Worrying too much about different things: 1 = Several days Trouble relaxin = Not at all Being so restless that it is hard to sit still: 0 = Not at all Becoming easily annoyed or irritable: 0 = Not at all Feeling afraid as if something awful might happen: 0 = Not at all Total ELLIOT-7 score (0-4 normal; 5-9 mild; 10-14 moderate; 15-21 severe): 1 Source: Developed by Drs. Rashad Muñoz, Jess Corbett, Miles Nevarez and colleagues, with an educational radha from [employer]. ELLIOT-7 Assessment Billing ELLIOT-7 Assessment Tool: ELLIOT-7 Assessment 69895 Review of Systems Const Denies fever(s), Denies headache(s), Denies night sweats and Denies poor appetite ENT Reports Normal hearing present, Denies headache(s), Denies nasal congestion and Denies disequilibrium Card Reports no additional complaints Resp Reports no additional complaints GI Denies heartburn and Denies vomiting Reports no additional complaints Musc Reports as per HPI Neuro Reports Normal hearing present, Denies Abnormal speech present, Denies headache(s) and Denies disequilibrium Psych Reports no additional complaints Endo Reports no additional complaints Jose Luis/Lymph Reports no additional complaints Aller/Immun Reports no additional complaints Physical exam (Primary Care) Vital Signs: Last Vital Signs Temp 98.0 F 06/11/24 11:59 Pulse 75 06/11/24 11:59 Resp 16 06/11/24 11:59 BP 148/92 H 06/11/24 11:59 Pulse Ox 95 06/11/24 11:59 Oxygen Delivery Method Room Air 06/11/24 11:59 BMI result Body Mass Index 32.3 BMI Assessment/Plan discussion: High BMI High, discussed plan: lifestyle, weight reduction, dietary and physical activity Tobacco/Smoking Status: Tobacco use Status Tobacco use date assessed 06/11/24 06/11/24 12:01 Patient Tobacco Use Status Former Tobacco user 06/11/24 11:59 Tobacco use type Cigarette 06/11/24 11:59 e-Cigarette/Vaping Use Never Used 06/11/24 11:59 PHQ-9: PHQ-9 Score PHQ-9: Total score 0 06/16/24 18:52 Depression Screening Interpretation: Negative Thrive Assessment: Date of Thrive Assessment Date Thrive assessed 06/08/24 06/11/24 11:59 Const General: no acute distress and alert Nutritional Appearance: obese Orientation/consciousness: patient oriented x3 HENMT General nose exam: Normal external nose present Face and sinus: Yes face symmetric Mouth: Normal oral and palatal mucosa present and moist mucous membranes Eyes General: appearance normal, both eyes and all related structures Neck Neck: Yes full ROM, Yes no lymphadenopathy and Yes supple Thyroid: Thyroid normal Resp Effort & Inspection: normal respiratory effort and able to speak in complete sentences Auscultation: clear to auscultation bilaterally Cardio Other: S1-S2 present regular rate and rhythm GI Palpation (GI): Soft to palpation, nontender, no guarding and no masses Auscultation: normal bowel sounds Rectal Exam - Female: normal sphincter tone and External hemorrhoid(s) present Neuro General: patient oriented x3, gait normal, tone normal, Normal light touch and pain sensation, no focal motor deficits and CN's II-XI intact bilaterally Cranial nerves: Yes Normal hearing present Speech: No Abnormal speech present Extrem General: Yes normal to inspection, Yes full ROM, Yes no joint enlargement, Yes no pedal edema and Yes normal gait Psych Appearance: grossly normal and well kempt Speech and movement: Normal speech and movement present Affect: normal affect Attitude: cooperative Thought process: Normal thought process present Coding Level of Care Code Est Pt Level 3 (10068) Diagnoses Internal hemorrhoid, bleeding K64.8 Bright red blood per rectum K62.5 Additional Codes PHQ-9 - 10271 - PHQ-9 Billing: Yes ([id number]) ELLIOT-7 Assessment Billing - ELLIOT-7 Assessment Tool: ELLIOT-7 Assessment 71021 ([id number]) Assessment & Plan Assessment & Plan (1) Internal hemorrhoid, bleeding: Code(s): K64.8 - Other hemorrhoids Category: Medical Plan: GI consult ordered (2) Bright red blood per rectum: Code(s): K62.5 - Hemorrhage of anus and rectum Category: Medical Plan: Likely hemorrhoids, referred to GI for further evaluation management. Advised to increase dietary fiber intake Orders: Orders Lipid Panel 06/11/24 D12.6 - Benign neoplasm of colon, unspecified, I10 - Essential (primary) hypertension, K62.5 - Hemorrhage of anus and rectum, K64.8 - Other hemorrhoids, R10.9 - Unspecified abdominal pain, R73.01 - Impaired fasting glucose Aspartate Amino Transferase 06/11/24 D12.6 - Benign neoplasm of colon, unspecified, I10 - Essential (primary) hypertension, K62.5 - Hemorrhage of anus and rectum, K64.8 - Other hemorrhoids, R10.9 - Unspecified abdominal pain, R73.01 - Impaired fasting glucose Alanine Aminotransferase 06/11/24 D12.6 - Benign neoplasm of colon, unspecified, I10 - Essential (primary) hypertension, K62.5 - Hemorrhage of anus and rectum, K64.8 - Other hemorrhoids, R10.9 - Unspecified abdominal pain, R73.01 - Impaired fasting glucose Complete Blood Count Auto Diff 06/11/24 D12.6 - Benign neoplasm of colon, unspecified, I10 - Essential (primary) hypertension, K62.5 - Hemorrhage of anus and rectum, K64.8 - Other hemorrhoids, R10.9 - Unspecified abdominal pain, R73.01 - Impaired fasting glucose Basic Metabolic Panel Fasting 06/11/24 D12.6 - Benign neoplasm of colon, unspecified, I10 - Essential (primary) hypertension, K62.5 - Hemorrhage of anus and rectum, K64.8 - Other hemorrhoids, R10.9 - Unspecified abdominal pain, R73.01 - Impaired fasting glucose Referrals Gastroenterology Referral D12.6 - Benign neoplasm of colon, unspecified, K62.5 - Hemorrhage of anus and rectum, K64.8 - Other hemorrhoids, R10.9 - Unspecified abdominal pain Medications: Refilled valsartan-hydrochlorothiazide 80-12.5 mg 1 tab PO DAILY 90 tabs 1RF I10 - Essential (primary) hypertension
[2024-06-11 11:59] VITALS: BP 148/92; PULSE 75; RESP 16; TEMP 36.7; O2SAT 95; BMI 32.3
--- OUTSIDE RECORDS SUMMARY | 2024-06-11 14:12 | XMS_ITS | Clinical Summary ---
Author Organization [facility] Facility Address [address] [place] [address], [place] [address] Care Team Providers Care Septic Tank Cleaner Name Role Phone Koko Tomas MD Primary Care Provider +1- [phone] Allergies Active Allergy Reactions Criticality Noted Date Comments Lisinopril 03/04/2022 Medications valsartan (DIOVAN) 160 MG tablet Take 160 mg by mouth 1 (one) time each day Active azithromycin (ZITHROMAX) 250 MG tablet TAKE 2 TABLETS BY MOUTH TODAY, THEN TAKE 1 TABLET DAILY FOR 4 DAYS 06/27/2022 Active Active Problems Problem Noted Date Diagnosed Date Essential (primary) hypertension 03/04/2022 Family History Medical History Relation Comments Diabetes Mother Hypertension Mother Relation Status Comments Mother Social History Tobacco Use Types Packs/Day Years Used Date Smoking Tobacco: Every Day Cigarettes Tobacco Cessation:Ready to Q uit: Not Asked; Counseling Given: Not Answered Alcohol Use Standard Drinks/Week Comments Yes 0 (1 standard drink = 0.6 oz pur e alcohol) Comments Unknown Sex and Gender Information Value Date Recorded Sex Assigned at Not on file Legal Sex Female 9:55 AM EDT Gender Identity Not on file Sexual Orientation Not on file Plan of Treatment Health Maintenance Due Date Last Done Comments Breast Cancer Screening 1964 Pneumococcal Vaccine: Pediat rics (0 to 5 Years) and At-Risk Patients (6 to 64 Years) (1 of 2 - PCV) 1970 Colorectal Cancer Screening: Annual FOBT 2013 Colorectal Cancer Screening: Colonoscopy 2013 Colorectal Cancer Screening: Sigmoidoscopy 2013 Influenza Vaccine (#1) 2023 Hepatitis B Vaccine Aged Out No longe r eligible based on patient's age to complete this topic Care Teams Septic Tank Cleaner Relationship Specialty Start Date End Date Koko Tomas MD 1962 Formerly named [facility] [place] [address] PCP - General Internal Medicine 12/09/21
== END 2024-06-11 12:47 | disposition home or self-care (01) ==
PROVIDERS: PCP Internal Medicine; Visit Provider Internal Medicine
DX: K64.8 Other hemorrhoids (principal); K62.5 Hemorrhage of anus and rectum

== ENCOUNTER → 2024-06-11 11:34 | Outpatient (BNVA) | payer OTHER, SELFPAY | PROVIDERS: PCP Internal Medicine; Visit Provider Internal Medicine | DX: K62.5 Hemorrhage of anus and rectum (principal); K64.8 Other hemorrhoids; I10 Essential (primary) hypertension | CPT/HCPCS: 96127 ==

== ENCOUNTER 2024-06-28 08:19 | Outpatient (REF) | payer OTHER, SELFPAY ==
--- NOTE | ~2024-06-28 | XR_ITS ---
EXAMINATION: XR KNEE 3 VIEWS LEFT HISTORY: M25.562 - Pain in left knee COMPARISON: Comparison is made with the prior examination dated 02/07/2024. FINDINGS: Standing AP views of both knees and additional lateral and sunrise patellar views of the left knee are submitted. Osseous mineralization is normal. There is no fracture or dislocation. There is mild osteoarthritis of the patellofemoral compartment with joint space narrowing and osteophyte formation. There is chondrocalcinosis. There is no joint effusion. XR/XR knee LT 3V IMPRESSION: Mild osteoarthritis of the patellofemoral compartment. Chondrocalcinosis. Electronically signed by: Rashad Nicolas MD 06/28/2024 11:22 AM EDT
== END 2024-06-28 08:20 | disposition home or self-care (01) ==
LOC: HO.HOSX 08:19
PROVIDERS: Visit Provider Physician Assistant
DX: M25.562 Pain in left knee (principal); M17.12 Unilateral primary osteoarthritis, left knee; M11.262 Other chondrocalcinosis, left knee
CPT/HCPCS: 73562; 99202

== ENCOUNTER 2024-06-28 09:14 | Outpatient (AMB) | payer OTHER, SELFPAY ==
[2024-06-28 09:27] VITALS: BMI 32.3
--- NOTE | 2024-06-28 09:27 | A.OFFVIS_ITS ---
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 Pt states on 01/19/24 she fell down some stairs with her legs stretched out. Pt states she has discomfort and has swelling occasionally. Pt denies any previous injuries,or surgeries to her left knee. 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 At the moment of her fall, she did not seek treatment. She states the knee was swelling and she had pain so three days later, she was seen at [facility]. She states she was sent to PT and the pain was not getting better so she stopped. SInce the DOI, there as not been much improvement . She states stair use is a challenge and walking can be uncomfortable. She feels as though the knee will give out. [facility] Medical History Internal hemorrhoid, bleeding Bright red blood per rectum Adenomatous polyp of colon Chronic right hip pain Essential hypertension Former smoker, stopped smoking in distant past Uncontrolled hypertension Smoker unmotivated to quit History of bone density study Impaired fasting glucose Refused influenza vaccine Menopause Vitiligo Urinary, incontinence, stress female Fibromyalgia Carpal tunnel syndrome Surgical History H/O colonoscopy History of carpal tunnel surgery History of tubal ligation Family History Mother Coronary artery disease Essential hypertension Diabetes mellitus Son Mental health disorder Social History Housing: House Alcohol intake: current Alcohol intake frequency: holidays/special occasions only Patient Tobacco Use Status: Former Tobacco user Tobacco use type: Cigarette Cigarettes Per Day: 2 e-Cigarette/Vaping Use: Never Used service: No Current occupational status: employed Cognitive needs: No Hearing needs: No Vision needs: Yes Review of Systems Const All systems reviewed & are unremarkable except as noted in HPI and below Physical Exam Vital Signs: BMI result Body Mass Index 32.3 Const General: cooperative and no acute distress Orientation/consciousness: patient oriented x3 Resp Effort & Inspection: normal respiratory effort and able to speak in complete sentences Cardio Peripheral pulses: Peripheral pulses 2+ throughout Neuro General: patient oriented x3 Extrem Other: Left knee normal to inspection she has lateral retropatellar tenderness with crepitus on range of motion. Medial joint line tenderness. No ligamentous instability calf supple nontender neurovascularly intact. Results Reviewed Results Reviewed: X-rays of the left knee obtained in the office today and reviewed by me show moderate osteoarthritis with chondral calcifications. MR knee LT wo con IMPRESSION: 1. Moderate osteoarthritis of the patellofemoral compartment. 2. Possible old osteochondral injury involving the lateral femoral condyle. Assessment & Plan Assessment & Plan (1) Patellofemoral arthritis of left knee: Code(s): M17.12 - Unilateral primary osteoarthritis, left knee Category: Medical Plan: We discussed options today which include physical therapy for the left knee to work on strengthening and conditioning. I also sent a prescription for Celebrex to the pharmacy to take twice a day for 2 weeks to help with her inflammation. I did offer her a cortisone injection however she would like to hold off on this at this moment. She will avoid stairs at work for the next 4 weeks and then she can resume normal duty. If symptoms persist or worsen over the next 2- 3 weeks and she would like to consider a cortisone injection she can contact our office to discuss and be booked. Orders: Orders XR knee LT 3V Today M25.562 - Pain in left knee XR knee RT 1V Today M25.561 - Pain in right knee PT Evaluation and Treatment Today M17.12 - Unilateral primary osteoarthritis, left knee Medications: New celecoxib (Celebrex) 200 mg PO BID 60 caps 3RF 30 days Coding Level of Care Code New Pt Level 3 (91665) Complex EM visit Add On G2211 Diagnoses Patellofemoral arthritis of left knee M17.12
--- OUTSIDE RECORDS SUMMARY | 2024-06-28 10:01 | XMS_ITS | Clinical Summary ---
Author Organization [facility] Facility Address [address] [place] [address], [place] [address] Care Team Providers Care Director Outcomes Name Role Phone Koko Tomas MD Primary Care Provider +1- [phone] Allergies Active Allergy Reactions Criticality Noted Date [...] age to complete this topic Care Teams Director Outcomes Relationship Specialty Start Date End Date Koko Tomas MD 1962 [place] [address] PCP - General Internal Medicine 12/09/21
== END 2024-06-28 09:46 | disposition home or self-care (01) ==
LOC: HO.HOS 09:15
PROVIDERS: PCP Internal Medicine; Visit Provider Physician Assistant
DX: M17.12 Unilateral primary osteoarthritis, left knee (principal)
CPT/HCPCS: 99203; G2211

== ENCOUNTER → 2024-06-28 09:18 | Outpatient (BNV) | payer OTHER, SELFPAY | PROVIDERS: Visit Provider Radiology Diagnostic Radiology | DX: M11.262 Other chondrocalcinosis, left knee (principal) | CPT/HCPCS: 73562 ==

== ENCOUNTER 2024-10-12 09:49 | Outpatient (REF) | payer OTHER, SELFPAY ==
--- OUTSIDE RECORDS SUMMARY | 2024-10-12 09:52 | XMS_ITS | Clinical Summary ---
Author Organization [facility] Facility Address [address] [place] [id number] Care Team Providers Care Supplemental Manager Name Role Phone Koko Tomas MD Primary Care Provider +1- [phone] Allergies Active Allergy Reactions Criticality Noted Date [...] Comments Breast Cancer Screening 1964 Pneumococcal Vaccine: 50+ Ye ars (1 of 2 - PCV) 1983 Colorectal Cancer Screening: Annual FOBT 2013 Colorectal Cancer Screening: Colonoscopy 2013 Colorectal Cancer Screening: Sigmoidoscopy 2013 Influenza Vaccine (Season Ended) 2024 Hepatitis B Vaccine Aged Out No longe r eligible based on patient's age to complete this topic Care Teams Supplemental Manager Relationship Specialty Start Date End Date Koko Tomas MD [facility] [place], [place] [id number] PCP - General Internal Medicine 12/09/21
[2024-10-12 11:06] LABS: MANUAL DIFF FLAG NO
[2024-10-12 11:19] LABS: Basophils Absolute Auto 0.1 X10*3/uL (0.0-0.2); Basophils Percent Auto 0.8 % (0-2); Eosinophils Absolute Auto 0.2 X10*3/uL (0.0-0.4); Eosinophils Percent Auto 2.3 % (0-4); Hematocrit 39.3 % (37.0-47.0); Hemoglobin 12.4 g/dl (12.0-16.0); Imm Gran Abs Auto 0.01 X10*3/uL (0.00-0.03); Imm Gran Pct Auto 0.2 % (0.0-0.4); Lymphocytes Absolute Auto 2.4 X10*3/uL (1.2-4.9); Lymphocytes Percent Auto 37.3 % (20-40); Mean Corpuscular HGB Conc 31.6 g/dl (31.0-35.0); Mean Corpuscular Hemoglobin 25.6 pg (27.0-33.0); Mean Platelet Volume 10.2 fL (9.4-12.3); Monocytes Absolute Auto 0.5 X10*3/uL (0.1-1.2); Neutrophils Absolute Auto 3.4 x10*3/uL (2.0-8.3); Neutrophils Percent Auto 51.4 % (45-73); Platelet Count 282 X10*3/uL (160-400); Red Blood Count 4.85 X10*6/uL (4.20-5.50); Red Cell Distribution Width 13.8 % (11.0-16.0); White Blood Count 6.5 X10*3/uL (4.8-10.8)
[2024-10-12 11:32] LABS: Alanine Aminotransferase 23 U/L (0-31); Anion Gap 10 (12-20); Aspartate Amino Transferase 28 U/L (5-31); Blood Urea Nitrogen 16 mg/dL (9-16); Calcium 8.7 mg/dL (8.4-10.2); Carbon Dioxide 25 mmol/L (22-29); Chloride 109 mmol/L (96-108); Cholesterol 195 mg/dL (<200); Estimated Glomerular Filt Rate > 60; Glucose Fasting 113 mg/dL (60-99); HDL Cholesterol 42 mg/dL (>40); LDL Cholesterol Calculated 119 mg/dL (<100); Potassium 4.1 mmol/L (3.3-5.1); Sodium 140 mmol/L (135-145); Triglycerides 174 mg/dL (<150)
== END 2024-10-12 09:50 | disposition home or self-care (01) ==
LOC: HO.HMGCLDS 09:49
PROVIDERS: PCP Internal Medicine; Visit Provider Internal Medicine
DX: R10.9 Unspecified abdominal pain (principal); K64.8 Other hemorrhoids; K62.5 Hemorrhage of anus and rectum; D12.6 Benign neoplasm of colon, unspecified; I10 Essential (primary) hypertension; R73.01 Impaired fasting glucose
CPT/HCPCS: 36415; 80048; 80061; 84450; 84460; 85025

== ENCOUNTER 2024-10-16 08:35 | Outpatient (AMB) | payer OTHER, SELFPAY ==
--- NOTE | 2024-10-16 08:38 | A.OFFPC_ITS ---
Vital Signs 10/16/24 08:43 Height 5 ft 5 in Weight 193 lb BMI 32.1 BP 138/90 H Blood Pressure Location Rt brachial Position Sitting Respiration 16 Pulse 97 Pulse Source Pulse Oximeter Temp 98.0 F Temp Source Oral Pulse Oximetry (%) 97 Oxygen Delivery Method Room Air Intake Visit Reasons: Annual Physical Intake Note: Pt is here today for her PE: Last mammogram 01/10/19, colonoscopy 03/25/22 Allergies lisinopril (LISINOPRIL) Adverse Reaction (Unknown, Verified 10/16/24 09:22) COUGH, throat tightness, cough, cough Medication List - Last Reconciled 10/16/24 by Tisha Tomas MD valsartan-hydrochlorothiazide 80-12.5 mg 1 tab PO DAILY Tobacco use date assessed: 10/16/24 Dental Screening Dental Screen Date: 10/16/24 Did you have a dental visit in the last 12 months?: No Did you have a dental problem in the last 6 months where you did not have access to dental care?: No Was dental information given to patient?: Yes HPI Annual Physical HPI Details 59-year old lady here today physical allen eng Has hypertension currently stable controlled on valsartan HCTZ. Overdue who breast cancer screening, with last mammogram done in 2018. Up-to-date with her screening colonoscopy done [place] [address] Zambrano, with tubular adenoma polyp removed. Has had intermittent episodes of bright red bleeding per rectum since May 2024, referred to GI Clinic but has not yet heard from them about an appointment She is a former smoker [facility] Medical History (Updated 10/16/24 @ 09:22 by Tisha Tomas MD) Vaccine refused by patient History of adenomatous polyp of colon Internal hemorrhoid, bleeding Chronic right hip pain Essential hypertension Former smoker, stopped smoking in distant past Uncontrolled hypertension History of bone density study Impaired fasting glucose Vitiligo Urinary, incontinence, stress female Fibromyalgia Carpal tunnel syndrome Surgical History H/O colonoscopy History of carpal tunnel surgery History of tubal ligation Family History Mother Coronary artery disease Essential hypertension Diabetes mellitus Son Mental health disorder Social History Housing: House Alcohol intake: current Alcohol intake frequency: holidays/special occasions only Patient Tobacco Use Status: Former Tobacco user Tobacco use type: Cigarette Cigarettes Per Day: 2 e-Cigarette/Vaping Use: Never Used service: No Current occupational status: employed Cognitive needs: No Hearing needs: No Vision needs: Yes Questionnaire PHQ-9 Over the last 2 weeks, how often have you been bothered by any of the following problems? 1. Little interest or pleasure in doing things: not at all 2. Feeling down, depressed, or hopeless: not at all 3. Trouble falling or staying asleep, or sleeping too much: not at all 4. Feeling tired or having little energy: several days 5. Poor appetite or overeating: several days 6. Feeling bad about yourself - or that you are a failure or have let yourself or your family down: not at all 7. Trouble concentrating on things, such as reading the newspaper or watching television: several days 8. Moving or speaking so slowly that other people could have noticed. Or the opposite - being so fidgety or restless that you have been moving around a lot more than usual: not at all 9. Thoughts that you would be better off or of hurting yourself in some way: not at all Total score: 3 Depression Screening Interpretation: Negative Depression Screening Done: Yes 41739 - PHQ-9 Billing: Yes Source: Developed by Drs. Rashad Muñoz, Jess Corbett, Miles Nevarez and colleagues, with an educational radha from [employer]. Thrive Questionnaire Date Thrive assessed: 10/16/24 I am a: Patient What is your living situation today?: I have a steady place to live Within the past 12 months, did the food you bought not last and you didn't have the money to get more?: Sometimes True Within the past 12 months, did you worry whether your food would run out before you got money to buy more?: Sometimes True Do you have trouble paying for medicines?: Yes Do you have trouble getting transportation to medical appointments?: No Do you have trouble paying your heating and electricity bill?: Yes Do you have trouble taking care of your child, family member or friend?: No Do you have trouble with day-to-day activities such as bathing, preparing meals, shopping, managing finances, etc.?: No Are you currently unemployed and looking for a job?: No Are you interested in more education?: Yes Currently or been in a relationship where the following occur: I choose not to answer THRIVE Score: 3 ELLIOT-7 AMB Questionnaire ELLIOT-7 Date ELLIOT - 7 assessed: 06/11/24 Source: Developed by Drs. Rashad Muñoz, Jess Corbett, Miles Nevarez and colleagues, with an educational radha from [employer]. Review of Systems Const Denies fever(s), Denies headache(s), Denies night sweats and Denies poor appetite Eyes Reports no additional complaints ENT Reports Normal hearing present and Denies headache(s) Card Reports no additional complaints Resp Reports no additional complaints GI Denies heartburn and Denies vomiting Reports no additional complaints and Denies nipple discharge Musc Reports no additional complaints Skin/Breast Denies breast pain, Denies breast mass, Denies nipple discharge and Denies rash Neuro Reports Normal hearing present and Denies headache(s) Psych Reports no additional complaints Endo Reports no additional complaints Jose Luis/Lymph Reports no additional complaints Aller/Immun Reports no additional complaints Physical exam (Primary Care) Vital Signs: Last Vital Signs Temp 98.0 F 10/16/24 08:43 Pulse 97 10/16/24 08:43 Resp 16 10/16/24 08:43 BP 138/90 H 10/16/24 08:43 Pulse Ox 97 10/16/24 08:43 Oxygen Delivery Method Room Air 10/16/24 08:43 BMI result Body Mass Index 32.1 BMI Assessment/Plan discussion: High BMI High, discussed plan: lifestyle, weight reduction, dietary and physical activity Tobacco/Smoking Status: Tobacco use Status Tobacco use date assessed 10/16/24 10/16/24 08:45 Patient Tobacco Use Status Former Tobacco user 10/16/24 08:38 Tobacco use type Cigarette 10/16/24 08:38 e-Cigarette/Vaping Use Never Used 10/16/24 08:38 PHQ-9: PHQ-9 Score PHQ-9: Total score 3 10/16/24 08:49 Depression Screening Interpretation: Negative Thrive Assessment: Date of Thrive Assessment Date Thrive assessed 10/16/24 10/16/24 08:45 Currently or been in a relationship where the following occur: I choose not to answer Advance Care Planning discussion: Completed/Scanned Date of discussion: 10/16/24 Who was present: Patient Forms completed: Health Care Proxy Time spent: 16-45 minutes Actual minutes spent: 3 Const General: no acute distress and alert Nutritional Appearance: obese Orientation/consciousness: patient oriented x3 [facility] General nose exam: Normal external nose present Face and sinus: Yes face symmetric Mouth: Normal oral and palatal mucosa present and moist mucous membranes Eyes General: appearance normal, both eyes and all related structures Neck Neck: Yes full ROM, Yes no lymphadenopathy and Yes supple Thyroid: Thyroid normal Chest Breast/axilla inspection: normal inspection of the breasts and normal inspection of the axillae Breast/axilla palpation: normal palpation of the breasts and normal palpation of the axillae Resp Effort & Inspection: normal respiratory effort and able to speak in complete sentences Auscultation: clear to auscultation bilaterally Cardio Other: S1-S2 present regular rate and rhythm GI Palpation (GI): Soft to palpation, nontender, no guarding and no masses Auscultation: normal bowel sounds Rectal Exam - Female: normal sphincter tone and External hemorrhoid(s) present General: Yes no CVA tenderness and Yes deferred (Referred to [facility] O[facility]YN for routine Pap pelvic exam) Back/Spine/Pelvis Back: no CVA tenderness and No back tenderness Skin Other: Hypopigmented patches noted on hands General skin exam: no rashes or lesions noted Neuro General: patient oriented x3, gait normal, tone normal, no focal motor deficits and CN's II-XI intact bilaterally Cranial nerves: Yes Normal hearing present Extrem General: Yes normal to inspection, Yes full ROM, Yes no joint enlargement, Yes no pedal edema and Yes normal gait Psych Appearance: grossly normal and well kempt Speech and movement: Normal speech and movement present Affect: normal affect Attitude: cooperative Thought process: Normal thought process present Results Reviewed Results Reviewed: Name: Kalli Diaz I Age/Sex: 59/F : 1965 Unit#: [id number] Attend Dr: Tisha Tomas MD Re10/12/24 Status: DEP REF Location: [facility] Disch: SPEC : [id number] NAYAN: 10/12/24 STATUS: COMP REQ : [id number] RECD: 10/12/[address]: Tisha Tomas MD COMP: 10/12/24 ENTERED: 10/12/[address] [facility] [address]: ORDERED: CBC Auto Diff Test Result Flag Reference WBC 6.5 4.8-10.8 X10*3/uL RBC 4.85 4.20-5.50 X10*6/uL HGB 12.4 12.0-16.0 g/dl HCT 39.3 37.0-47.0 % MCV 81.0 80.0-98.0 fL MCH 25.6 L 27.0-33.0 pg MCHC 31.6 31.0-35.0 g/dl RDW 13.8 11.0-16.0 % PLT 282 160-400 X10*3/uL MPV 10.2 9.4-12.3 fL Neut Pct Auto 51.4 45-73 % ImGran Pct Auto 0.2 0.0-0.4 % Lymp Pct Auto 37.3 20-40 % Wells Pct Auto 8.0 2-11 % Eos Pct Auto 2.3 0-4 % Baso Pct Auto 0.8 0-2 % NRBC Pct Auto 0.0 0.0-0.2 /100WBC ANC Neut Abs # 3.4 2.0-8.3 x10*3/uL ImGran Abs Auto 0.01 0.00-0.03 X10*3/uL Lymph Abs Auto 2.4 1.2-4.9 X10*3/uL Wells Abs Auto 0.5 0.1-1.2 X10*3/uL Eos Abs Auto 0.2 0.0-0.4 X10*3/uL Baso Abs Auto 0.1 0.0-0.2 X10*3/uL NRBC Abs Auto 0.000 0.0-0.012 X10*3/uL Name: Hubbardprerna DialloKalli I Age/Sex: 59/F : 1965 Unit#: [id number] Attend Dr: Tisha Tomas MD Re10/12/24 Status: DEP REF Location: [facility] Disch: SPEC : [id number] NAYAN: 10/12/24 STATUS: COMP REQ : [id number] RECD: 10/12/24-[address]: Tisha Tomas MD COMP: 10/12/24-1131 ENTERED: 10/12/[address]: ORDERED: Met Prof Fast, AST, ALT, Lipid Panel Test Result Flag Reference Sodium 140 135-145 mmol/L Potassium 4.1 3.3-5.1 mmol/L CL 109 H 96-108 mmol/L CO2 25 22-29 mmol/L Gap 10 L 12-20 BUN 16 9-16 mg/dL Creat 0.70 0.5-1.4 mg/dL eGFR > 60 Chronic Kidney Disease: Estimated GFR < 60 mL/min/1.73m2 Severe Kidney Disease: Estimated GFR < 15 mL/min/1.73m2 FBS 113 H 60-99 mg/dL A fasting glucose from 100-125 mg/dl is considered impaired (pre-diabetes). CA 8.7 # 8.4-10.2 mg/dL AST (GOT) 28 5-31 U/L ALT (GPT) 23 0-31 U/L Triglyceride 174 H <150 mg/dL Desirable Triglyceride: less than 150 mg/dL Borderline High Triglyceride 150-199 mg/dL High Triglyceride: 200-499 mg/dL Very High Triglyceride: greater than or equal to 5OO mg/dL Cholesterol 195 <200 mg/dL Desirable Cholesterol: less than 200 mg/dL Borderline High Cholesterol: 200-239 mg/dL High Cholesterol: greater than 239 mg/dL LDL Calculated 119 H <100 mg/dL Desirable LDL: less than 100 mg/dL Near Optimal/Above Optimal LDL: 110-129 mg/dL Borderline High LDL: 130-159 mg/dL High LDL: 160-189 mg/dL Very High LDL: greater than or equal to 190 mg/dL HDL 42 >40 mg/dL Desirable HDL: greater than 40 mg/dL Coding Level of Care Code Est Pt Prev Care 40-64y(73011) Diagnoses Annual visit for general adult medical examination with abnormal findings Z00.01 Internal hemorrhoid, bleeding K64.8 Screening for malignant neoplasm of cervix Z12.4 Essential hypertension I10 Impaired fasting glucose R73.01 History of adenomatous polyp of colon Z86.0101 Vitiligo L80 Advanced directives, counseling/discussion Z71.89 Hypertriglyceridemia E78.1 Vaccine refused by patient Z28.20 Additional Codes PHQ-9 - 63653 - PHQ-9 Billing: Yes ([id number]) Vital Signs *Quality* - Advance Care Planning discussion: Completed/Scanned ([id number]) Vital Signs *Quality* - Time spent: 16-45 minutes ([id number]) Assessment & Plan Assessment & Plan (1) Annual visit for general adult medical examination with abnormal findings: Code(s): Z00.01 - Encounter for general adult medical examination with abnormal findings Plan: Latest fasting lab results reviewed with patient. Recommended dental visit every 6 months and regular eye exams, at least every 2 years. Take adequate calcium in diet and vitamin-D 3 at 2000 IU per cap once a day, in addition to weight-bearing exercises to help maintain good muscle tone and weight control. Instructed to do self-breast exam, and recommended to get yearly mammogram, ordered today together with a bone density scan. Patient declines getting any vaccines, referred back to GI Clinic for her repeat colonoscopy (2) Internal hemorrhoid, bleeding: Code(s): K64.8 - Other hemorrhoids Category: Medical Plan: Referred back to GI Clinic for further evaluation management (3) Screening for malignant neoplasm of cervix: Code(s): Z12.4 - Encounter for screening for malignant neoplasm of cervix Plan: Referred to OBGYN for her cervical cancer screening and pelvic exam (4) Essential hypertension: Code(s): I10 - Essential (primary) hypertension Category: Medical Plan: Blood pressure at goal of less than 130/80. Continue with current medication. Reinforced importance of following a low sodium diet, getting regular exercise, and lowering stress levels. (5) Impaired fasting glucose: Code(s): R73.01 - Impaired fasting glucose Category: Medical Plan: Will check hemoglobin A1c, Your fasting blood sugars were elevated above 100 mg/dL. Impaired glucose metabolism increases the risk for developing diabetes mellitus type 2, as well as heart attack and stroke later on. Lifestyle changes that promotes weight loss, healthy eating habits, and regular exercise are important, and can prevent the progression to diabetes (6) History of adenomatous polyp of colon: Code(s): Z86.0101 - Personal history of adenomatous and serrated colon polyps Category: Medical Plan: Referred back to GI Clinic for her repeat colonoscopy screening (7) Vitiligo: Code(s): L80 - Vitiligo Category: Medical Plan: No treatment indicated at this time (8) Advanced directives, counseling/discussion: Code(s): Z71.89 - Other specified counseling Plan: Initiated the conversation about Advanced Directives. Advanced Directives help patients prepare for current and future decisions about their medical treatment and place of care. Discussed with patient that it is a process where a patients current condition and prognosis are reviewed, their wishes for information regarding their illness are elicited, and likely medical dilemmas are presented and options discussed. Healthcare proxy form completed today. The form can be amended as needed, reviewed yearly and make changes as needed (9) Hypertriglyceridemia: Code(s): E78.1 - Pure hyperglyceridemia Plan: Reviewed recent fasting lipid profile with patient with elevated triglyceride levels . Stressed importance of adherence to low-cholesterol diet and regular exercise, at least 30 minutes 3 to 4 times a week. Advised patient to make healthy food choices, eat more fruits, vegetables, whole grains, wild caught fish and low-fat dairy. Limit amount of meat and fried or fatty food products, as well as processed foods and fast foods. (10) Vaccine refused by patient: Code(s): Z28.20 - Immunization not carried out because of patient decision for unspecified reason Category: Medical Plan: Patient declined getting any vaccines Orders: Orders XR DEXA axial skeleton 10/16/24 Z12.31 - Encounter for screening mammogram for malignant neoplasm of breast, Z13.820 - Encounter for screening for osteoporosis, Z78.0 - Asymptomatic menopausal state Basic Metabolic Panel Fasting 03/29/25 E78.1 - Pure hyperglyceridemia, I10 - Essential (primary) hypertension, R73.01 - Impaired fasting glucose Vitamin D 25-OH Total 03/29/25 E78.1 - Pure hyperglyceridemia, I10 - Essential (primary) hypertension, R73.01 - Impaired fasting glucose MM tomosynthesis screening BI 10/16/24 Z12.31 - Encounter for screening mammogram for malignant neoplasm of breast, Z13.820 - Encounter for screening for osteoporosis, Z78.0 - Asymptomatic menopausal state Lipid Panel 03/29/25 E78.1 - Pure hyperglyceridemia, I10 - Essential (primary) hypertension, R73.01 - Impaired fasting glucose Hemoglobin A1c 03/29/25 E78.1 - Pure hyperglyceridemia, I10 - Essential (primary) hypertension, R73.01 - Impaired fasting glucose Referrals Gastroenterology Referral K64.8 - Other hemorrhoids, Z86.0101 - Personal history of adenomatous and serrated colon polyps ASSISTED LIVING HOUSEKEEPER Referral Z12.4 - Encounter for screening for malignant neoplasm of cervix Medications: New cholecalciferol (vitamin D3) 50 mcg PO DAILY 90 caps 3RF Refilled valsartan-hydrochlorothiazide 80-12.5 mg 1 tab PO DAILY 90 tabs 4RF I10 - Essential (primary) hypertension
--- OUTSIDE RECORDS SUMMARY | 2024-10-16 08:39 | XMS_ITS | Clinical Summary ---
Author Organization [facility] Facility Address [address] [place] [id number] Care Team Providers Care Family Services Specialist Name Role Phone Koko Tomas MD Primary Care Provider [phone]- [phone] Allergies Active Allergy Reactions Criticality Noted Date [...] age to complete this topic Care Teams Family Services Specialist Relationship Specialty Start Date End Date Koko Tomas MD [facility] [place], [place] [id number] PCP - General Internal Medicine 12/09/21
[2024-10-16 08:43] VITALS: BP 138/90; PULSE 97; RESP 16; TEMP 36.7; O2SAT 97; BMI 32.1
== END 2024-10-16 09:13 | disposition home or self-care (01) ==
LOC: HO.HMCC 08:36
PROVIDERS: PCP Internal Medicine; Visit Provider Internal Medicine
DX: Z00.01 Encounter for general adult medical examination with abnormal findings (principal); K64.8 Other hemorrhoids; Z12.4 Encounter for screening for malignant neoplasm of cervix; I10 Essential (primary) hypertension; R73.01 Impaired fasting glucose; Z86.0101 Personal history of adenomatous and serrated colon polyps; L80 Vitiligo; Z71.89 Other specified counseling; E78.1 Pure hyperglyceridemia; Z28.20 Immunization not carried out because of patient decision for unspecified reason; Z00.00 Encounter for general adult medical examination without abnormal findings

== ENCOUNTER → 2024-10-16 08:35 | Outpatient (BNVA) | payer OTHER, SELFPAY | PROVIDERS: PCP Internal Medicine; Visit Provider Internal Medicine | DX: Z00.01 Encounter for general adult medical examination with abnormal findings (principal); I10 Essential (primary) hypertension; K64.8 Other hemorrhoids; R73.01 Impaired fasting glucose; L80 Vitiligo; E78.1 Pure hyperglyceridemia; Z71.89 Other specified counseling; Z86.0101 Personal history of adenomatous and serrated colon polyps | CPT/HCPCS: 96127 ==

== ENCOUNTER 2024-11-22 08:38 | Outpatient (REF) | payer OTHER, SELFPAY ==
[2024-11-22 14:19] LABS: Resp Syncy Virus RNA Qual PCR NEGATIVE (Negative); SARS COV2 PCR INHOUSE NEGATIVE (Negative)
== END 2024-11-22 08:39 | disposition home or self-care (01) ==
LOC: HO.LNP 08:38
PROVIDERS: Nurse Practitioner Family; PCP Internal Medicine
DX: J06.9 Acute upper respiratory infection, unspecified (principal); R06.02 Shortness of breath; R53.83 Other fatigue; M79.10 Myalgia, unspecified site; Z87.891 Personal history of nicotine dependence
CPT/HCPCS: 87637; 87880

== ENCOUNTER 2024-11-22 08:38 | Outpatient (AMB) | payer OTHER, SELFPAY ==
--- OUTSIDE RECORDS SUMMARY | 2024-11-22 08:51 | XMS_ITS | Clinical Summary ---
Author Organization [facility] Facility Address [address] [place] [address] Care Team Providers Care Commuter Pilot Name Role Phone Koko Tomas MD Primary Care Provider [phone]- [phone] Allergies Active Allergy Reactions Criticality Noted Date [...] Cancer Screening: Sigmoidoscopy 2013 Influenza Vaccine (#1) 2024 Hepatitis B Vaccine Aged Out No longe r eligible based on patient's age to complete this topic Care Teams Commuter Pilot Relationship Specialty Start Date End Date Koko Tomas MD [facility] [place], [place] [id number] PCP - General Internal Medicine 12/09/21
[2024-11-22 09:26] VITALS: BP 132/80; PULSE 72; TEMP 36.6; O2SAT 98; BMI 31.9
--- NOTE | 2024-11-22 09:26 | AM.OFFWIN_ITS ---
Intake Vital Signs 11/22/24 09:26 Height 5 ft 5 in Weight 192 lb BMI 31.9 BP 132/80 Blood Pressure Location Rt brachial Position Sitting Pulse 72 Pulse Source Pulse Oximeter Temp 97.9 F Temp Source Oral Pulse Oximetry (%) 98 Oxygen Delivery Method Room Air Intake Visit Reasons: EP throat pain, congestion, cough, weak Intake Note: presents with throat ache, sinus burning sensation and congestion, chest congestion with non productive cough , SOB, fatigue, body aches Patient Tobacco Use Status: Former Tobacco user Allergies lisinopril (LISINOPRIL) Adverse Reaction (Unknown, Verified 11/22/24 09:31) COUGH, throat tightness, cough, cough Do you need a note to return to daycare/school/sports/work: Yes HPI EP throat pain, congestion, cough, weak HPI Details This is a 59-year-old female patient presents to the walk-in clinic today with a 4 day history of sinus congestion, burning, sore throat, nonproductive cough, intermittent shortness of breath, fatigue, body aches. Has not taken temperature, however has felt very hot, on/off. Her son was sick with a brief illness earlier this week, however has since recovered. Denies any GI symptoms. [facility] Medical History Vaccine refused by patient History of adenomatous polyp of colon Internal hemorrhoid, bleeding Chronic right hip pain Essential hypertension Former smoker, stopped smoking in distant past Uncontrolled hypertension History of bone density study Impaired fasting glucose Vitiligo Urinary, incontinence, stress female Fibromyalgia Carpal tunnel syndrome Surgical History H/O colonoscopy History of carpal tunnel surgery History of tubal ligation Family History Mother Coronary artery disease Essential hypertension Diabetes mellitus Son Mental health disorder Social History Housing: House Alcohol intake: current Alcohol intake frequency: holidays/special occasions only Patient Tobacco Use Status: Former Tobacco user Tobacco use type: Cigarette Cigarettes Per Day: 2 e-Cigarette/Vaping Use: Never Used service: No Current occupational status: employed Cognitive needs: No Hearing needs: No Vision needs: Yes Review of Systems Const All systems reviewed & are unremarkable except as noted in HPI and below Physical Exam Vital Signs: Last Vital Signs Temp 97.9 F 11/22/24 09:26 Pulse 72 11/22/24 09:26 BP 132/80 11/22/24 09:26 Pulse Ox 98 11/22/24 09:26 Oxygen Delivery Method Room Air 11/22/24 09:26 BMI result Body Mass Index 31.9 Const General: cooperative and no acute distress HEENT Head: Yes normal to inspection and Yes normocephalic Ears: hearing grossly normal bilaterally and TM's normal bilaterally General nose exam: Normal external nose present and Normal nasal mucous membranes and turbinates present Face and sinus: Yes normal facial exam Mouth: Normal oral and palatal mucosa present Throat: Yes posterior oropharynx abnormal (mild erythema) Neck Neck: Yes no lymphadenopathy Resp Effort & Inspection: normal respiratory effort and Actively coughing Quality: dry Auscultation: clear to auscultation bilaterally Cardio Rate: regular rate Rhythm: regular rhythm Skin General skin exam: no rashes or lesions noted Extrem General: Yes capillary refill normal and Yes no clubbing, cyanosis or edema Psych Appearance: grossly normal Mental Status: mental status grossly normal Speech and movement: Normal speech and movement present Assessment & Plan Assessment & Plan (1) Viral upper respiratory illness: Code(s): J06.9 - Acute upper respiratory infection, unspecified Plan: Symptoms are consistent with a viral upper respiratory illness. We discussed conservative measures of treatment, including rest, hydration, healthy food/vitamin intake, [id number] cold/flu medication as needed. COVID/flu/RSV swab was obtained in the office, and patient is aware she will be notified of her results once these are available. Albuterol inhaler prescribed for p.r.n. use, as patient reports she has been having coughing fits and occasionally getting short of breath. We reviewed indications, use, possible side effects of this. She does not improve with time and measures discussed, she can return to the clinic for further evaluation. She verbalizes understandi ng and agrees to plan. Work note provided. Orders: Orders SARS-CoV2/FLU/RSV Today J06.9 - Acute upper respiratory infection, unspecified Medications: New albuterol sulfate 90 mcg/actuation 1 inh inhalation QID PRN 6.7 grams 0RF shortness of breath or wheezing J06.9 - Acute upper respiratory infection, unspecified Coding Level of Care Code Est Pt Level 4 (67323) Diagnoses Viral upper respiratory illness J06.9
== END 2024-11-22 10:31 | disposition home or self-care (01) ==
PROVIDERS: PCP Internal Medicine; Visit Provider Nurse Practitioner Family
DX: Z13.9 Encounter for screening, unspecified (principal); J06.9 Acute upper respiratory infection, unspecified

== ENCOUNTER 2024-12-11 14:13 | Outpatient (REF) | payer OTHER, SELFPAY ==
--- OUTSIDE RECORDS SUMMARY | 2024-12-11 15:14 | XMS_ITS | Clinical Summary ---
Author Organization [facility] Facility Address [address] [place] [address] Care Team Providers Care Photofinishing Laboratory Worker Name Role Phone Koko Tomas MD Primary Care Provider +1- [phone] Allergies Active Allergy Reactions Criticality Noted Date [...] age to complete this topic Care Teams Photofinishing Laboratory Worker Relationship Specialty Start Date End Date Koko Tomas MD [facility] [place], [place] [phone] PCP - General Internal Medicine 12/09/21
== END 2024-12-11 14:14 | disposition home or self-care (01) ==
LOC: HO.MAMMO 14:13
PROVIDERS: PCP Internal Medicine; Visit Provider Internal Medicine
DX: Z12.31 Encounter for screening mammogram for malignant neoplasm of breast (principal)
CPT/HCPCS: 77063; 77067

== ENCOUNTER → 2024-12-11 14:15 | Outpatient (BNV) | payer OTHER, SELFPAY | PROVIDERS: PCP Internal Medicine; Visit Provider Radiology Body Imaging | DX: Z12.31 Encounter for screening mammogram for malignant neoplasm of breast (principal) | CPT/HCPCS: 77063; 77067 ==

== ENCOUNTER 2024-12-18 14:27 | Outpatient (REF) | payer OTHER, SELFPAY ==
--- NOTE | ~2024-12-18 | MM_ITS ---
STUDY: DUAL ENERGY X-RAY ABSORPTIOMETRY / DXA REASON FOR EXAM: Female, 59 years old Z12.31 - Encounter for screening mammogram for malignant neoplasm of breast TECHNIQUE: Bone Mineral Density (BMD) measurements of the lumbar spine and left hip were obtained using 1Cast COMPARISON: None FINDINGS: L1-L4 BMD: 1.139 g/cm2 L1-L4 T score: -0.3. This corresponds to Normal bone density. Left femoral neck BMD: 1.188 g/cm2 Left femoral neck T score: 1.1. This corresponds to Normal bone density. Left total hip BMD: 1.192 g/cm2 Left total hip T score: 1.5. This corresponds to Normal bone density. MM/XR DEXA axial skeleton IMPRESSION: Normal bone density Reference Information: The T-score is the number of standard deviations above or below the standard which is normal for young adults at their peak bone mineral density. The World Health Organization (WHO) interprets the T-scores as follows: At or above -1 SD Normal bone density Between -1 and -2.5 SD Osteopenia At or below -2.5 SD Osteoporosis Electronically signed by: Hailey Stanford MD 12/19/2024 11:21 AM EDT
--- OUTSIDE RECORDS SUMMARY | 2024-12-18 16:45 | XMS_ITS | Clinical Summary ---
Author Organization [facility] Facility Address [address] [place] [id number] Care Team Providers Care Ore Feeder Name Role Phone Koko Tomas MD Primary Care Provider +1- [phone] Allergies Active Allergy Reactions Criticality Noted Date [...] age to complete this topic Care Teams Ore Feeder Relationship Specialty Start Date End Date Koko Tomas MD [facility] [place], [place] [id number] PCP - General Internal Medicine 12/09/21
== END 2024-12-18 14:28 | disposition home or self-care (01) ==
LOC: HO.MAMMO 14:27
PROVIDERS: Visit Provider Internal Medicine
DX: Z13.820 Encounter for screening for osteoporosis (principal); Z78.0 Asymptomatic menopausal state
CPT/HCPCS: 77080

== ENCOUNTER → 2024-12-18 14:30 | Outpatient (BNV) | payer OTHER, SELFPAY | PROVIDERS: Visit Provider Radiology Body Imaging | DX: E28.39 Other primary ovarian failure (principal) | CPT/HCPCS: 77080 ==

== ENCOUNTER 2025-01-29 10:48 | Outpatient (AMB) | payer OTHER, SELFPAY ==
--- NOTE | 2025-01-29 10:59 | A.OFFVIS_ITS ---
Vital Signs 3 01/29/25 11:02 Height 5 ft 5 in Weight 195 lb BMI 32.4 BP 146/90 H Blood Pressure Location Rt brachial Position Sitting Pulse 74 Pulse Source Pulse Oximeter Pulse Oximetry (%) 94 Oxygen Delivery Method Room Air Intake Visit Reasons: Repeat colonoscopy Intake Note: Est pt for recall colo screening. Last ~2-3 years ago. CC; C.O. intermittent constipation and diarrhea with occasional lower abd pain B/L. Pt reports intermittent BRB per rectum. Blood Bank Laboratory Professional Required: No Accompanied by: Self / Same As Patient Allergies lisinopril (LISINOPRIL) Adverse Reaction (Unknown, Verified 01/29/25 11:00) COUGH, throat tightness, cough, cough HPI HPI Repeat colonoscopy: Details: Assessment & Plan (1) Pre-op examination: ?Code(s): Z01.818 - Encounter for other preprocedural examination ?Plan: She did not come back because she lost her insurance. I review with her the very concerning findings of the last colonoscopy; and that I want her scope to be sher. Her most pressing problem now is her HTN, I restart her HCTZ.? The reason I am getting involved is because I do not want an elevated blood pressure reading to cause anesthesia to declined to do her procedure.? I do not want anything to interfere with being sure we protect her from colon cancer. There are no prior problems with anesthesia or sedation. No ID problems.? She denies any cardiac or respiratory problems. She had a TA with a focal area of high grade dysphagia in 2019 and then lost her insurance, I would like to get the scope sher. (2) Tubular adenoma of colon: ?Comment: 2019 scope 1 with an area of high-grade dysplasia ?Code(s): D12.6 - Benign neoplasm of colon, unspecified (3) Uncontrolled hypertension: ?Code(s): I10 - Essential (primary) hypertension ? ? ? Medications: PMX relative to the procedure Hypertension History of internal bleeding hemorrhoids Vitiligo Fibromyalgia syndrome * ALLERGIES Lisinopril Labs: Laboratory Tests 10/12/24 09:58 WBC 6.5 Hgb 12.4 Hct 39.3 MCV 81.0 MCH 25.6 L Plt Count 282 Estimated GFR > 60 AST 28 ALT 23 THIS PATIENT WAS LAST SEEN 03/2022 after her colonoscopy that required a 3 year follow-up due to multiple small polyps. She has occasional RB on TT and her stools are variable from normal to soft. She denies any upper GI problems. There are no prior problems with anesthesia or sedation. No ID problems.? She denies any cardiac or respiratory problems. She had a TA with a focal area of high grade dysphagia in 2019 [facility] Medical History Vaccine refused by patient History of adenomatous polyp of colon Internal hemorrhoid, bleeding Chronic right hip pain Essential hypertension Former smoker, stopped smoking in distant past Uncontrolled hypertension History of bone density study Impaired fasting glucose Vitiligo Urinary, incontinence, stress female Fibromyalgia Carpal tunnel syndrome Surgical History H/O colonoscopy History of carpal tunnel surgery History of tubal ligation Family History Mother Coronary artery disease Essential hypertension Diabetes mellitus Son Mental health disorder Social History Housing: House Alcohol intake: current Alcohol intake frequency: holidays/special occasions only Patient Tobacco Use Status: Former Tobacco user Tobacco use type: Cigarette Cigarettes Per Day: 2 e-Cigarette/Vaping Use: Never Used service: No Current occupational status: employed Cognitive needs: No Hearing needs: No Vision needs: Yes Review of Systems Const Denies fatigue, Denies fever(s), Denies night sweats, Denies poor appetite, Reports weight gain and Denies weight loss ENT Reports Normal hearing present, Denies dysphagia, Denies odynophagia, Denies throat swelling and Denies tongue swelling Card Reports leg edema and Reports dyspnea on exertion Resp Reports dyspnea on exertion GI Details: Fecal incontinence/smearing Denies abdominal pain, Denies melena, Denies bloating, Denies hematochezia, Denies constipation, Denies GI cramping, Denies dysphagia, Denies excessive flatus, Denies early satiety, Denies heartburn, Denies diarrhea, Reports loose stools, Denies nausea, Denies odynophagia, Denies vomiting and Denies hematemesis Skin/Breast Denies pruritus, Denies lesions, Denies rash and Denies jaundice Neuro Reports Normal hearing present and Denies Abnormal speech present Endo Denies fatigue Aller/Immun Denies throat swelling and Denies tongue swelling Physical Exam Vital Signs: Last Vital Signs Pulse 74 01/29/25 11:02 BP 146/90 H 01/29/25 11:02 Pulse Ox 94 01/29/25 11:02 Oxygen Delivery Method Room Air 01/29/25 11:02 BMI result Body Mass Index 32.4 Const General: cooperative, no acute distress, well developed and well groomed Nutritional Appearance: well nourished and obese Orientation/consciousness: oriented to person, oriented to place and oriented to time Limitations: No language barrier HEENT Head: Yes normocephalic and Yes atraumatic Eyes General: appearance normal, both eyes and all related structures Pupils: Equal, round and reactive pupils present Neck Neck: Yes normal visual inspection and Yes no lymphadenopathy Thyroid: Thyroid normal Resp Effort & Inspection: normal respiratory effort and able to speak in complete sentences Auscultation: clear to auscultation bilaterally Cardio Rate: regular rate Rhythm: regular rhythm Heart sounds: Normal, physiologic split S2 sound present Peripheral pulses: radial pulses present and posterior tibial pulses present GI Inspection: No distended, Yes Abdominal panniculus present and Yes obesity Palpation (GI): Soft to palpation, nontender, no guarding, not rigid and No hepatosplenomegaly present Percussion: Yes normal to percussion Auscultation: normal bowel sounds Rectal Exam - Female: deferred Abdomen image: 2 1. surgical scar Skin General skin exam: no rashes or lesions noted, turgor normal, skin not dry, no jaundice, No spider nevi and no striae Rashes: no rashes Nails: normal Neuro General: oriented to person, oriented to place and oriented to time Cranial nerves: Yes Equal, round and reactive pupils present and Yes Normal hearing present Speech: No Abnormal speech present Extrem General: Yes normal to inspection, No clubbing, No cyanosis and No edema Psych Appearance: grossly normal and well kempt Mental Status: mental status grossly normal Speech and movement: Normal speech and movement present Affect: normal affect Attitude: cooperative Thought process: Normal thought process present and not confabulating Thought content: Normal thought content present Insight: Good insight present (Psych) Judgement: Good judgement present (Psych) Assessment & Plan Assessment & Plan (1) Pre-op examination: Code(s): Z01.818 - Encounter for other preprocedural examination Category: Medical (2) Tubular adenoma of colon: Comment: 2021= large TA repeat in 3 years; 2019 scope 1 with an area of high-grade dysplasia Code(s): D12.6 - Benign neoplasm of colon, unspecified Category: Medical (3) Dyspnea on exertion: Code(s): R06.09 - Other forms of dyspnea Category: Medical (4) Abdominal cramping: Code(s): R10.9 - Unspecified abdominal pain Category: Medical (5) Rectal leakage: Code(s): R15.9 - Full incontinence of feces Category: Medical Plan THIS PATIENT WAS LAST SEEN 03/2022 after her colonoscopy that required a 3 year follow-up due to multiple small polyps. She has occasional RB on TT and her stools are variable from normal to soft. She denies any upper GI problems. There are no prior problems with anesthesia or sedation. No ID problems.? She denies any cardiac or respiratory problems. She had a TA with a focal area of high grade dysphagia in 2019 She also presents with a couple of new concerns. One is increasing shortness of breath with activity even with housework. She denies any chest pain or shortness of breath/orthopnea. She has not seen a record press supervisor for this in his possible that this is deconditioning due to weight gain but I think this should be clarified prior to her appointment. I am going to order an EKG and a troponin to see if there is any immediate cardiac concerns and I will refer her to pulmonology for an evaluation. Her other concern is that she is having frequent loose stools and incontinence particularly with coughing or any sudden effort with lifting etc.. She will also have extremely sudden onset of bowel urgency and while she has not had fecal accidents she does have to sykes to get to the bathroom. She has a occasional cramping that is described as sharp across the lower quadrants of the abdomen that is not necessarily related to her bowel movements but is more intermittent but will resolve quickly. I let her know that the 1st approach to treating this would be to institute fiber to bulk up the stools and I also think a trial of dicyclomine would help both with the cramping and with the fecal urgency. It also sometimes has a mild constipating affect. I explained this to her and she is quite willing to buy her fiber [id number]. Return office visit in 6 weeks COLONOSCOPY BIOPSY Orders: Orders 2 Troponin-I High Sensitivity Today R06.09 - Other forms of dyspnea ECG 12 lead EKG Today R06.09 - Other forms of dyspnea Referrals 2 Pulmonology Referral R06.09 - Other forms of dyspnea GI Procedure Notification D12.6 - Benign neoplasm of colon, unspecified, Z01.818 - Encounter for other preprocedural examination Medications: New 2 bisacodyl (Dulcolax (bisacodyl)) 10 mg (2 x 5 mg) PO BEDTIME 4 tabs 0RF 2 days dicyclomine 20 mg PO BID 60 tabs 6RF 30 days R10.9 - Unspecified abdominal pain, R15.9 - Full incontinence of feces peg 3350-electrolytes 236-22.74-6.74 -5.86 gram (Golytely) until fecal effluent is clear; do not exceed a total volume of 2,000 mL 240 mL PO Q10M 4,000 mL 0RF 1 day Z12.11 - Encounter for screening for malignant neoplasm of colon Coding Level of Care Code New Pt Level 3 (57104) Diagnoses Pre-op examination Z01.818 Tubular adenoma of colon D12.6 Dyspnea on exertion R06.09 Abdominal cramping R10.9 Rectal leakage R15.9
[2025-01-29 11:02] VITALS: BP 146/90; PULSE 74; O2SAT 94; BMI 32.4
--- OUTSIDE RECORDS SUMMARY | 2025-01-29 13:07 | XMS_ITS | Clinical Summary ---
Author Organization [facility] Facility Address [address] [place] [id number] Care Team Providers Care Knuckler Name Role Phone Koko Tomas MD Primary Care Provider +1- [phone] Allergies Active Allergy Reactions Criticality Noted Date [...] age to complete this topic Care Teams Knuckler Relationship Specialty Start Date End Date Koko Tomas MD [facility] [place], [place] [id number] PCP - General Internal Medicine 12/09/21
== END 2025-01-29 12:14 | disposition home or self-care (01) ==
LOC: HO.HGI 10:49
PROVIDERS: PCP Internal Medicine; Visit Provider Nurse Practitioner
DX: Z01.818 Encounter for other preprocedural examination (principal); Z12.11 Encounter for screening for malignant neoplasm of colon; Z86.0101 Personal history of adenomatous and serrated colon polyps; R10.9 Unspecified abdominal pain; R15.9 Full incontinence of feces; R06.09 Other forms of dyspnea
CPT/HCPCS: S0285

== ENCOUNTER 2025-01-30 09:11 | Outpatient (REF) | payer OTHER, SELFPAY ==
--- OUTSIDE RECORDS SUMMARY | 2025-01-30 10:20 | XMS_ITS | Clinical Summary ---
Author Organization [facility] Facility Address [address] [place] [address] Care Team Providers Care Electrician Underground Name Role Phone Koko Tomas MD Primary Care Provider +1- [phone] Allergies Active Allergy Reactions Criticality Noted Date [...] age to complete this topic Care Teams Electrician Underground Relationship Specialty Start Date End Date Koko Tomas MD [facility] [place], [place] [id number] PCP - General Internal Medicine 12/09/21
[2025-01-30 11:02] LABS: Troponin-I High Sensitivity < 2.7 ng/L (<3.5-17.0)
== END 2025-01-30 09:12 | disposition home or self-care (01) ==
LOC: HO.LAB 09:11
PROVIDERS: PCP Internal Medicine; Visit Provider Nurse Practitioner
DX: R06.09 Other forms of dyspnea (principal)
CPT/HCPCS: 36415; 84484

== ENCOUNTER → 2025-01-31 09:10 | Outpatient (REF) | payer OTHER, SELFPAY ==
--- NOTE | 2025-01-31 09:14 | ECG_ITS ---
Test Reason : DYSPNEA Blood Pressure : */* mmHG Vent. Rate : 70 BPM Atrial Rate : 70 BPM P-R Int : 166 ms QRS Dur : 76 ms QT Int : 402 ms P-R-T Axes : 40 33 60 degrees QTcB Int : 434 ms Normal sinus rhythm Nonspecific ST abnormality Abnormal ECG When compared with ECG of 04-Dec-2021 15:54, No significant change was found Referred By: Sally Florez Electronically Signed By: Rashel Kelly
--- OUTSIDE RECORDS SUMMARY | 2025-01-31 10:01 | XMS_ITS | Clinical Summary ---
Author Organization [facility] Facility Address [address] [place] [address] Care Team Providers Care Plastic Finisher Name Role Phone Koko Tomas MD Primary Care Provider +1- [phone] Allergies Active Allergy Reactions Criticality Noted Date [...] age to complete this topic Care Teams Plastic Finisher Relationship Specialty Start Date End Date Koko Tomas MD [facility] [place], [place] [id number] PCP - General Internal Medicine 12/09/21
== END ==
LOC: HO.CARD 09:10
PROVIDERS: PCP Internal Medicine; Visit Provider Nurse Practitioner
DX: R06.09 Other forms of dyspnea (principal)
CPT/HCPCS: 93005

== ENCOUNTER → 2025-01-31 09:14 | Outpatient (BNV) | payer OTHER, SELFPAY | PROVIDERS: PCP Internal Medicine; Visit Provider Internal Medicine Cardiovascular Disease | DX: R94.31 Abnormal electrocardiogram [ECG] [EKG] (principal); R06.00 Dyspnea, unspecified | CPT/HCPCS: 93010 ==

== ENCOUNTER 2025-03-17 13:19 | Outpatient (AMB) | payer OTHER, SELFPAY ==
[2025-03-17 13:27] VITALS: BP 138/68; PULSE 90; BMI 31.9
--- NOTE | 2025-03-17 13:27 | MHC.OFFVIS ---
Vital Signs 03/17/25 13:27 Height 5 ft 5 in Weight 191 lb 12.835 oz BMI 31.9 BP 138/68 Blood Pressure Location Lt brachial Position Sitting Pulse 90 Pulse Source Pulse Oximeter Intake Visit Reasons: Other forms of dyspnea Allergies lisinopril (LISINOPRIL) Adverse Reaction (Unknown, Verified 01/29/25 11:00) COUGH, throat tightness, cough, cough Medication List - Last Reconciled 03/17/25 by Jonathan March MD bisacodyl (Dulcolax (bisacodyl)) 10 mg (2 x 5 mg) PO BEDTIME 2 days dicyclomine 20 mg PO BID 30 days peg 3350-electrolytes 236-22.74-6.74 -5.86 gram (Golytely) 240 mL PO Q10M 1 day HPI Comments Details: The patient is a 59 year old individual presenting for evaluation of new-onset shortness of breath. The patient has been experiencing shortness of breath for the past 2-3 months, which is a new symptom. The dyspnea is triggered by minimal exertion including walking short distances, talking, and bending down. The patient also reports feeling dizzy with these episodes. Associated with the shortness of breath, the patient feels pressure in the lower chest area, which resolves with rest. The patient also reports that the feet and legs become swollen almost every day. The patient denies any known history of heart or lung problems, heart attacks, or stents. There is a history of smoking, but the patient quit over four years ago. The patient is due for a colonoscopy. [facility] Medical History Vaccine refused by patient History of adenomatous polyp of colon Internal hemorrhoid, bleeding Chronic right hip pain Essential hypertension Former smoker, stopped smoking in distant past Uncontrolled hypertension History of bone density study Impaired fasting glucose Vitiligo Urinary, incontinence, stress female Fibromyalgia Carpal tunnel syndrome Surgical History H/O colonoscopy History of carpal tunnel surgery History of tubal ligation Family History (Updated 03/17/25 @ 13:31 by Bhavna Hurtado) Mother Coronary artery disease Essential hypertension Diabetes mellitus Son Mental health disorder Father No problems noted. Social History (Updated 03/17/25 @ 13:32 by Bhavna Hurtado) Housing: House Alcohol intake: former Patient Tobacco Use Status: Former Tobacco user Tobacco use type: Cigarette Cigarettes Per Day: 2 e-Cigarette/Vaping Use: Never Used service: No Current occupational status: employed Cognitive needs: No Hearing needs: No Vision needs: Yes Review of Systems Const Denies weakness ENT Denies dizziness Card Denies chest pain, Denies chest pain with activity, Denies syncope, Denies rapid heart rate, Denies pedal edema, Denies edema, Denies leg edema, Denies lightheadedness, Denies palpitations, Reports dyspnea, Reports dyspnea on exertion and Reports orthopnea Resp Denies cough, Reports dyspnea and Reports dyspnea on exertion GI Denies hematochezia and Denies change in stool character Musc Denies abnormal gait, Reports myalgias, Reports joint swelling, Denies muscle cramps, Denies muscle weakness, Denies numbness, Denies radiating pain into limb and Denies tingling Neuro Denies abnormal gait, Denies dizziness, Denies syncope, Denies numbness, Denies tingling and Denies weakness Endo Denies palpitations Physical Exam Vital Signs: Last Vital Signs Pulse 90 03/17/25 13:27 BP 138/68 03/17/25 13:27 BMI result Body Mass Index 31.9 Const General: comfortable and no acute distress Orientation/consciousness: patient oriented x3 HEENT Other: Unremarkable Head: Yes normal to inspection Neck Neck: Yes normal visual inspection Chest Chest palpation & inspection: normal inspection of the chest Resp Auscultation: clear to auscultation bilaterally Cardio Palpation: normal PMI Heart sounds: S1 normal heart sound present, S2 normal heart sound present, no gallops, no murmurs and no rubs GI Palpation (GI): Soft to palpation Back/Spine/Pelvis Other: unremarkable Skin General skin exam: no rashes or lesions noted Neuro General: patient oriented x3 Extrem General: Yes normal to inspection Psych Mental Status: mental status grossly normal Assessment & Plan Assessment & Plan (1) Dyspnea on exertion: Code(s): R06.09 - Other forms of dyspnea Category: Medical Plan Clinical exam unremarkable. No evidence of congestive heart failure. In the EKG, underlying rhythm is sinus at 70/Min; nonspecific ST-T changes; normal OR and corrected QT. She needs evaluation for cardiomyopathy. Less likely ischemic heart disease, as she has no clear-cut angina. We will start with an echocardiogram, ETT and NT proBNP testing. Based on the findings, we will plan further care. Discussion Notes I discussed with the patient that we need to investigate the new shortness of breath. I have ordered a series of tests to evaluate heart function, including a heart ultrasound (echocardiogram), a blood test for cardiac stress, and a treadmill stress test. I also informed the patient that I do not hear the heart murmur that the patient was told about in the past. We will proceed with further management based on the results of these tests. Patient was informed and verbally consented to the use of an ambient scribe for clinic note documentation during this visit. Orders: Orders CA stress test Today R06.09 - Other forms of dyspnea, R07.2 - Precordial pain CA echo transthoracic complete Today R06.09 - Other forms of dyspnea NT Pro B Type Natriuretic Pept Today I50.9 - Heart failure, unspecified, R06.09 - Other forms of dyspnea Patient Instructions: - We have ordered several tests to check your heart because of your shortness of breath. - You will need to get an echocardiogram, which is an ultrasound of your heart. - You will also need a blood test. - A stress test will be done, which involves you walking on a treadmill. - We will contact you to go over the results and decide on the next steps. Coding Level of Care Code New Pt Level 4 (74542) Complex visit Add On G2211 Diagnoses Dyspnea on exertion R06.09
--- OUTSIDE RECORDS SUMMARY | 2025-03-17 16:56 | XMS_ITS | Clinical Summary ---
Author Organization [facility] Facility Address [address] [place] [address] Care Team Providers Care Pound Attendant Name Role Phone Koko Tomas MD Primary Care Provider +1- [phone] Allergies Active Allergy Reactions Criticality Noted Date [...] age to complete this topic Care Teams Pound Attendant Relationship Specialty Start Date End Date Kkoo Tomas MD PCP - General Internal Medicine 12/09/21
== END 2025-03-17 13:52 | disposition home or self-care (01) ==
LOC: HO.HCS 13:20
PROVIDERS: PCP Internal Medicine; Visit Provider Internal Medicine
DX: R06.09 Other forms of dyspnea (principal)
CPT/HCPCS: 99204; G2211

== ENCOUNTER 2025-03-18 12:59 | Outpatient (AMB) | payer OTHER, SELFPAY ==
--- NOTE | 2025-03-18 13:04 | MHC.OFFVIS ---
Vital Signs 03/18/25 13:05 Height 5 ft 5 in Weight 192 lb BMI 31.9 BP 183/89 H Blood Pressure Location Rt brachial Position Sitting Pulse 80 Intake Visit Reasons: rectal incontinence Intake Note: Kalli presents to in office today in follow up for lab results. CC: Patient states that she was already seen by cardiology and was ordered a stress test. She also has an appt coming up with pulmonology. Patient denies any new GI concerns today. 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 Graduate Internship Required: No Accompanied by: Self / Same As Patient Allergies lisinopril (LISINOPRIL) Adverse Reaction (Unknown, Verified 03/18/25 13:18) COUGH, throat tightness, cough, cough HPI HPI rectal incontinence: Details: Assessment & Plan (1) Pre-op examination: Code(s): Z01.818 - Encounter for other preprocedural examination Category: Medical (2) Tubular adenoma of colon: Comment: 2021= large TA repeat in 3 years; 2019 scope 1 with an area of high-grade dysplasia Code(s): D12.6 - Benign neoplasm of colon, unspecified Category: Medical (3) Dyspnea on exertion: Code(s): R06.09 - Other forms of dyspnea Category: Medical (4) Abdominal cramping: Code(s): R10.9 - Unspecified abdominal pain Category: Medical (5) Rectal leakage: Code(s): R15.9 - Full incontinence of feces Category: Medical Plan THIS PATIENT WAS LAST SEEN 03/2022 after her colonoscopy that required a 3 year follow-up due to multiple small polyps. She has occasional RB on TT and her stools are variable from normal to soft. She denies any upper GI problems. There are no prior problems with anesthesia or sedation. No ID problems.? She denies any cardiac or respiratory problems. She had a TA with a focal area of high grade dysphagia in 2019 She also presents with a couple of new concerns. One is increasing shortness of breath with activity even with housework. She denies any chest pain or shortness of breath/orthopnea. 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 I am going to order an EKG and a troponin to see if there is any immediate cardiac concerns and I will refer her to pulmonology for an evaluation. Her other concern is that she is having frequent loose stools and incontinence particularly with coughing or any sudden effort with lifting etc.. She will also have extremely sudden onset of bowel urgency and while she has not had fecal accidents she does have to sykes to get to the bathroom. She has a occasional cramping that is described as sharp across the lower quadrants of the abdomen that is not necessarily related to her bowel movements but is more intermittent but will resolve quickly. I let her know that the 1st approach to treating this would be to institute fiber to bulk up the stools and I also think a trial of dicyclomine would help both with the cramping and with the fecal urgency. It also sometimes has a mild constipating affect. I explained this to her and she is quite willing to buy her fiber [id number]. Return office visit in 6 weeks Orders: Orders Troponin-I High Sensitivity Today R06.09 - Other forms of dyspnea ECG 12 lead EKG Today R06.09 - Other forms of dyspnea Referrals Pulmonology Referral R06.09 - Other forms of dyspnea GI Procedure Notification D12.6 - Benign neoplasm of colon, unspecified, Z01.818 - Encounter for other preprocedural examination Medications: New bisacodyl (Dulcolax (bisacodyl)) 10 mg (2 x 5 mg) PO BEDTIME 4 tabs 0RF 2 days dicyclomine 20 mg PO BID 60 tabs 6RF 30 days R10.9 - Unspecified abdominal pain, R15.9 - Full incontinence of feces peg 3350-electrolytes 236-22.74-6.74 -5.86 gram (Golytely) until fecal effluent is clear; do not exceed a total volume of 2,000 mL 240 mL PO Q10M 4,000 mL 0RF 1 day Z12.11 - Encounter for screening for malignant neoplasm of colon LABS Laboratory Tests 01/30/25 09:32 Troponin I High Sens < 2.7 Date of Service: 01/31/25 Procedure(s): ECG 12 lead EKG Accession Number(s): [id number] cc: Florez ANP-C~ Reason for Exam: R06.09 - Other forms of dyspnea Test Reason : DYSPNEA Blood Pressure : */* mmHG Vent. Rate : 70 BPM Atrial Rate : 70 BPM P-R Int : 166 ms QRS Dur : 76 ms QT Int : 402 ms P-R-T Axes : 40 33 60 degrees QTcB Int : 434 ms Normal sinus rhythm Nonspecific ST abnormality Abnormal ECG When compared with ECG of 04-Dec-2021 15:54, No significant change was found COLONOSCOPY BIOPSY CORRESPONDENCE On 02/05/25 @ 17:21 Tiana Jules Wrote To Tiana Jules LVM notifying PT per message below. Tiana Jules completed item. On 02/04/25 @ 11:40 FlorezSally Wrote To Tiana Jules Please call patient and advise her I am referring her to cardiology for a more thorough workup as there was an ST abnormality on her EKG. New Orders Cardiology Referral 02/04/25 [facility] Medical History Vaccine refused by patient History of adenomatous polyp of colon Internal hemorrhoid, bleeding Chronic right hip pain Essential hypertension Former smoker, stopped smoking in distant past Uncontrolled hypertension History of bone density study Impaired fasting glucose Vitiligo Urinary, incontinence, stress female Fibromyalgia Carpal tunnel syndrome Surgical History H/O colonoscopy History of carpal tunnel surgery History of tubal ligation Family History Mother Coronary artery disease Essential hypertension Diabetes mellitus Son Mental health disorder Father No problems noted. Social History Housing: House Alcohol intake: former Patient Tobacco Use Status: Former Tobacco user Tobacco use type: Cigarette Cigarettes Per Day: 2 e-Cigarette/Vaping Use: Never Used service: No Current occupational status: employed Cognitive needs: No Hearing needs: No Vision needs: Yes Review of Systems Const Denies fatigue, Denies fever(s), Denies night sweats, Denies poor appetite and Denies weight loss ENT Reports Normal hearing present, Denies dental pain, Denies dysphagia, Denies hearing loss, Denies mouth pain, Denies odynophagia, Denies throat swelling, Denies tongue swelling and Reports other (Dentition adequate) Card Reports dyspnea on exertion Resp Reports dyspnea on exertion GI Details: Denies abdominal pain, Denies melena, Denies bloating, Denies hematochezia, Denies constipation, Denies GI cramping, Denies dysphagia, Denies excessive flatus, Denies early satiety, Denies heartburn, Denies diarrhea, Reports loose stools, Denies nausea, Denies odynophagia, Denies vomiting and Denies hematemesis Skin/Breast Denies pruritus, Denies lesions, Denies rash and Denies jaundice Neuro Reports Normal hearing present and Denies Abnormal speech present Endo Denies fatigue Aller/Immun Denies throat swelling and Denies tongue swelling Physical Exam Vital Signs: Last Vital Signs Pulse 80 03/18/25 13:05 BP 183/89 H 03/18/25 13:05 BMI result Body Mass Index 31.9 Const General: cooperative, no acute distress, well developed and well groomed Nutritional Appearance: well nourished and obese Orientation/consciousness: oriented to person, oriented to place and oriented to time Limitations: No language barrier HEENT Head: Yes normocephalic and Yes atraumatic Eyes General: appearance normal, both eyes and all related structures Pupils: Equal, round and reactive pupils present Neck Neck: Yes normal visual inspection and Yes no lymphadenopathy Thyroid: Thyroid normal Resp Effort & Inspection: normal respiratory effort and able to speak in complete sentences Auscultation: clear to auscultation bilaterally Cardio Rate: regular rate Rhythm: regular rhythm Heart sounds: Normal, physiologic split S2 sound present Peripheral pulses: radial pulses present and posterior tibial pulses present GI Inspection: No distended, No Abdominal panniculus present and Yes obesity Palpation (GI): Soft to palpation, nontender, no guarding, not rigid and No hepatosplenomegaly present Percussion: Yes normal to percussion Auscultation: normal bowel sounds Rectal Exam - Female: deferred Skin General skin exam: no rashes or lesions noted, turgor normal, skin not dry, no jaundice, No spider nevi and no striae Rashes: no rashes Nails: normal Neuro General: oriented to person, oriented to place and oriented to time Cranial nerves: Yes Equal, round and reactive pupils present and Yes Normal hearing present Speech: No Abnormal speech present Extrem General: Yes normal to inspection, No clubbing, No cyanosis and No edema Psych Appearance: grossly normal and well kempt Mental Status: mental status grossly normal Speech and movement: Normal speech and movement present Affect: normal affect Attitude: cooperative Thought process: Normal thought process present and not confabulating Thought content: Normal thought content present Insight: Fair insight present (Psych) Judgement: Fair judgement present (Psych) Results Reviewed Results Reviewed: Laboratory Tests 01/30/25 09:32 Troponin I High Sens < 2.7 Date of Service: 01/31/25 Procedure(s): ECG 12 lead EKG Accession Number(s): [id number] cc: GautamJuly ANP-C~ Reason for Exam: R06.09 - Other forms of dyspnea Test Reason : DYSPNEA Blood Pressure : */* mmHG Vent. Rate : 70 BPM Atrial Rate : 70 BPM P-R Int : 166 ms QRS Dur : 76 ms QT Int : 402 ms P-R-T Axes : 40 33 60 degrees QTcB Int : 434 ms Normal sinus rhythm Nonspecific ST abnormality Abnormal ECG When compared with ECG of 04-Dec-2021 15:54, No significant change was found Assessment & Plan Assessment & Plan (1) Dyspnea on exertion: Code(s): R06.09 - Other forms of dyspnea Category: Medical (2) Abnormal EKG: Code(s): R94.31 - Abnormal electrocardiogram [ECG] [EKG] Category: Medical (3) Rectal leakage: Code(s): R15.9 - Full incontinence of feces Category: Medical (4) Abdominal cramping: Code(s): R10.9 - Unspecified abdominal pain Category: Medical (5) Internal hemorrhoid, bleeding: Code(s): K64.8 - Other hemorrhoids Category: Medical (6) Tubular adenoma of colon: Comment: 2021= large TA repeat in 3 years; 2019 scope 1 with an area of high-grade dysplasia Code(s): D12.6 - Benign neoplasm of colon, unspecified Category: Medical Plan SHE WAS SUPPOSED TO START A TRIAL of dicyclomine but never picked up the medication from her pharmacy. I had referred her to Cardiology and she was seen on March 17 and we will be awaiting stress testing and other testing for her EKG abnormality and sudden onset shortness of breath. Subjective Patient presents for follow-up of loose stools and fecal incontinence. She also had a doorknob complaint during her preop exam of new onset shortness of breath. She reports intermittent episodes, including at rest, with occasional brief, sharp sensations that come and go. She has been evaluated with an EKG that showed an abnormality of the ST segment; she has seen cardiology and is awaiting scheduling for a stress test and an echocardiogram. She denies acute worsening. Regarding gastrointestinal symptoms, she reports prior looser stools and fecal leakage have improved. Symptoms vary with diet; fried foods have been reduced and dairy (milk and cheese) triggers urgent bowel movements. She plans to continue dietary adjustments. She will proceed with colonoscopy after cardiac evaluation is completed. Relevant Past Medical, Social, and Family History History of childhood heart murmur with no current murmur on recent exam by cardiology, per patient report. Objective - Prior EKG demonstrated ST-segment abnormality; cardiology consulted and further testing (stress test and echocardiogram) planned. Assessment & Plan Dyspnea, new onset, with abnormal EKG: EKG showed ST-segment abnormality; cardiology has been engaged. No evidence today of an acute process, and symptoms are stable. - Proceed with cardiology-directed testing, including stress test and echocardiogram; await scheduling and results. - Defer non-urgent procedures until cardiac workup is complete. - Patient educated on rationale for evaluation and to seek care for worsening shortness of breath, chest pain, or concerning symptoms. Altered bowel habits with prior fecal leakage, improved; diet-related triggers (dairy): Symptoms currently improved with dietary modification; dairy triggers urgency. - Trial dicyclomine as discussed, to use as needed based on symptoms. - Continue dietary adjustments to minimize trigger foods. - Plan for colonoscopy after completion of cardiac evaluation; scheduling to follow cardiology clearance. Follow-up: We will contact the patient to schedule after cardiology testing is completed. Patient to call sooner for any new or worsening symptoms. COLONOSCOPY BIOPSY Coding Level of Care Code Est Pt Level 3 (68162) Diagnoses Dyspnea on exertion R06.09 Abnormal EKG R94.31 Rectal leakage R15.9 Abdominal cramping R10.9 Internal hemorrhoid, bleeding K64.8 Tubular adenoma of colon D12.6
[2025-03-18 13:05] VITALS: BP 183/89; PULSE 80; BMI 31.9
--- OUTSIDE RECORDS SUMMARY | 2025-03-18 14:52 | XMS_ITS | Clinical Summary ---
Author Organization [facility] Facility Address [address] [place] [id number] Care Team Providers Care Buyer Grain Name Role Phone Koko Tomas MD Primary Care Provider [phone] Allergies Active Allergy Reactions Criticality Noted Date [...] age to complete this topic Care Teams Buyer Grain Relationship Specialty Start Date End Date Koko Tomas MD PCP - General Internal Medicine 12/09/21
== END 2025-03-18 13:48 | disposition home or self-care (01) ==
LOC: HO.HGI 12:59
PROVIDERS: PCP Internal Medicine; Visit Provider Nurse Practitioner
DX: R06.09 Other forms of dyspnea (principal); R94.31 Abnormal electrocardiogram [ECG] [EKG]; R15.9 Full incontinence of feces; R10.9 Unspecified abdominal pain; K64.8 Other hemorrhoids; D12.6 Benign neoplasm of colon, unspecified
CPT/HCPCS: 99213